=== PATIENT | female | born 1975 | race Two or more races ===

== ENCOUNTER 2016-12-11 09:39 | Emergency (ER) | payer OTHER ==
[2016-12-11 09:45] VITALS: TEMP 98.2; BMI 40.7
--- NOTE | 2016-12-11 09:59 | PDOC ---
History of Present Illness <Stewart Head - Last Filed: 12/11/16 09:59> - History of Present Illness Initial Comments: 12/11/16 10:16 The patient is a 41 year old female, with a significant past medical history of , who presents to the emergency department with dizziness, nausea, and vomiting for 4 days. The patient describes her dizziness as room spinning and denies alleviating factors. She reports a heaviness in her face. The patient states she has nausea associated with the dizziness and reports a few episodes of vomiting. The patient reports being sick about 6 weeks ago and was treated with antibiotics with very little relief of her sinus congestion. She denies chest pain, shortness of breath, headache. She denies fever, chills, diarrhea and constipation. She denies dysuria, frequency, urgency and hematuria. Allergies: NKDA PCP - Dr. Brewer <Lydia James - Last Filed: 12/11/16 15:51> - General Chief Complaint: Lightheaded Stated Complaint: DIZZY, LIGHTHEADED Past History - Past Medical History Asthma: Yes - Surgical History Abdominal Surgery: Yes Appendectomy: Yes - Immunization History Immunization Up to Date: Yes - Psycho/Social/Smoking Cessation Hx Anxiety: No Suicidal Ideation: No Smoking Status: Yes Smoking History: Current every day smoker Have you smoked in the past 12 months: Yes Number of Cigarettes Smoked Daily: 2 Information on smoking cessation initiated: No Hx Alcohol Use: No Drug/Substance Use Hx: No Substance Use Type: None <Stewart Head - Last Filed: 12/11/16 09:59> <Lydia James - Last Filed: 12/11/16 15:51> - Past Medical History Allergies/Adverse Reactions: Allergies Allergy/AdvReac Type Severity Reaction Status Date / Time No Known Allergies Allergy Verified 12/11/16 09:41 Home Medications: Ambulatory Orders Amox-Tr/K Cl [Augmentin - 875Mg Tablet] 1 tab PO BID #20 tablet 12/11/16 Meclizine HCl [Antivert -] 25 mg PO QID PRN #28 tablet 12/11/16 Ondansetron [Zofran Odt -] 4 mg SL TID PRN #21 od.tablet 12/11/16 Review of Systems - Review of Systems Able to Perform ROS?: Yes Comments:: 12/11/16 10:17 CONSTITUTIONAL: Absent: fever, chills, diaphoresis, generalized weakness, malaise, loss of appetite HEENT: (+) nasal congestion, Absent: rhinorrhea, throat pain, throat swelling, difficulty swallowing, mouth swelling, ear pain, eye pain, visual Changes CARDIOVASCULAR: Absent: chest pain, syncope, palpitations, irregular heart rate, lightheadedness , peripheral edema RESPIRATORY: Absent: cough, shortness of breath, dyspnea with exertion, orthopnea, wheezing, stridor, hemoptysis GASTROINTESTINAL: (+) nausea, vomiting. Absent: abdominal pain, abdominal distension, diarrhea, constipation, melena, hematochezia GENITOURINARY: Absent: dysuria, frequency, urgency, hesitancy, hematuria, flank pain, genital pain MUSCULOSKELETAL: Absent: myalgia, arthralgia, joint swelling SKIN: Absent: rash, itching, pallor HEMATOLOGIC/IMMUNOLOGIC: Absent: easy bleeding, easy bruising, lymphadenopathy, frequent infections ENDOCRINE: Absent: unexplained weight gain, unexplained weight loss, heat intolerance, cold intolerance NEUROLOGIC: (+) dizziness, Absent: headache, focal weakness or paresthesias, unsteady gait, seizure, mental status changes, bladder or bowel incontinence PSYCHIATRIC: Absent: anxiety, depression, suicidal or homicidal ideation, hallucinations. <Lydia James - Last Filed: 12/11/16 15:51> *Physical Exam - Vital Signs Last Vital Signs Temp Pulse Resp BP Pulse Ox 98.2 F 85 20 117/65 97 12/11/16 09:43 12/11/16 09:43 12/11/16 09:43 12/11/16 09:43 12/11/16 09:43 <Stewart Head - Last Filed: 12/11/16 09:59> - Vital Signs Last Vital Signs Temp Pulse Resp BP Pulse Ox 98.2 F 85 20 117/65 97 12/11/16 09:43 12/11/16 09:43 12/11/16 09:43 12/11/16 09:43 12/11/16 09:43 - Physical Exam Comments: 12/11/16 10:18 GENERAL: Well developed, well nourished. Awake and alert. No acute distress. HEENT: (+) swollen, red turbinates in bilateral nares. mild sinusitis. No nystagmus. Normocephalic, atraumatic. PERRLA, EOMI. No conjunctival pallor. Sclera are non- icteric. Moist mucous membranes. Oropharynx is clear. NECK: Supple. Full ROM. No JVD. Carotid pulses 2+ and symmetric, without bruits. No thyromegaly. No lymphadenopathy. CARDIOVASCULAR: Regular rate and rhythm. No murmurs, rubs, or gallops. Distal pulses are 2+ and symmetric. PULMONARY: No evidence of respiratory distress. Lungs clear to auscultation bilaterally. No wheezing, rales or rhonchi. ABDOMINAL: Soft. Non-tender. Non-distended. No rebound or guarding. No organomegaly. Normoactive bowel sounds. MUSCULOSKELETAL Normal range of motion at all joints. No bony deformities or tenderness. No CVA tenderness. EXTREMITIES: No cyanosis. No clubbing. No edema. No calf tenderness. SKIN: Warm and dry. Normal capillary refill. No rashes. No jaundice. NEUROLOGICAL: Alert, awake, appropriate. Cranial nerves 2-12 intact. Normoreflexic in the upper and lower extremities. Normal speech. Toes are down-going bilaterally. Gait is normal without ataxia. PSYCHIATRIC: Cooperative. Good eye contact. Appropriate mood and affect. <Lydia James - Last Filed: 12/11/16 15:51> Heart Score/ECG Review - ECG Intrepretation Comment:: 12/11/16 10:20 EKG was read at 10:17 Impression: Normal sinus rhythm Vent. Rate: 78 bpm MN Interval: 154 ms QTc: 440 ms <Lydia James - Last Filed: 12/11/16 15:51> ED Treatment Course - LABORATORY CBC & Chemistry Diagram: 12/11/16 11:00 12/11/16 11:00 <Lydia James - Last Filed: 12/11/16 15:51> *DC/Admit/Observation/Transfer <Stewart Head - Last Filed: 12/11/16 09:59> - Attestations Scribe Attestion: 12/11/16 10:19 Documentation prepared by Lydia James, acting as medical dermatologist for Stewart Head MD, <Lydia James - Last Filed: 12/11/16 15:51> Diagnosis at time of Disposition: Sinusitis - Prescriptions Prescriptions: Meclizine HCl [Antivert -] 25 mg PO QID PRN #28 tablet PRN Reason: Vertigo Amox-Tr/K Cl [Augmentin - 875Mg Tablet] 1 tab PO BID #20 tablet Ondansetron [Zofran Odt -] 4 mg SL TID PRN #21 od.tablet PRN Reason: Nausea - Referrals Referrals: Ernestine Brewer MD [Primary Care Provider] - - Patient Instructions Printed Discharge Instructions: Vertigo, DI for Sinusitis - Post Discharge Activity Work/School Note: Back to Work
[2016-12-11] MEDS ORDERED: MECLIZINE HCL 25 MG TABLET (FP) PO ONE (10:15)
[2016-12-11] MEDS ORDERED: MECLIZINE HCL 25 MG TABLET (FP) ONE (10:59)
[2016-12-11 11:19] LABS: BASOPHIL 1.2 % (0-2.0); EOSINOPHIL 2.4 % (0-4.5); MCH 28.1 pg (25.7-33.7); MCHC 32.8 g/dl (32.0-36.0); MEAN CELL VOLUME 85.5 fl (80-96); MEAN PLT VOLUME 11.1 fl (7.5-11.1); NEUTROPHILS 62.9 % (42.8-82.8); PLATELET COUNT 224 K/MM3 (134-434); RDW 14.4 % (11.6-15.6); WHITE BLOOD COUNT 10.6 K/mm3 (4.0-10.0)
[2016-12-11 11:41] LABS: ALBUMIN 3.6 g/dl (3.4-5.0); ALK PHOS 77 U/L (45-117); ANION GAP 7 (8-16); BILIRUBIN,TOTAL 0.5 mg/dL (0.2-1.0); CO2 29 mmol/L (21-32); CREATININE 0.7 mg/dL (0.55-1.02); GLUCOSE,RANDOM 105 mg/dL (74-106); SGOT/AST 8 U/L (15-37); SGPT/ALT 20 U/L (12-78)
--- NOTE | 2016-12-11 16:13 | EKG ---
Test Reason : Blood Pressure : / mmHG Vent. Rate : 078 BPM Atrial Rate : 078 BPM P-R Int : 154 ms QRS Dur : 084 ms QT Int : 386 ms P-R-T Axes : 075 049 031 degrees QTc Int : 440 ms NORMAL SINUS RHYTHM NORMAL ECG WHEN COMPARED WITH ECG OF 21-JUL-2013 14:43, NO SIGNIFICANT CHANGE WAS FOUND Confirmed by PHUONG LEONE MD ([id number]) on 12/11/2016 4:13:34 PM Referred By: Confirmed By:PHUONG LEONE MD
[2016-12-14 09:46] VITALS: BP 119/62; PULSE 83
== END 2016-12-11 13:13 | disposition home or self-care (01) ==
LOC: JER 09:39
DX: J32.9 Chronic sinusitis, unspecified (principal)
CPT/HCPCS: 36415; 70450-TC; 80053; 84703; 85025; 93005; 93010; 99281-25; 99284-25

== ENCOUNTER 2017-04-08 20:14 | Emergency (ER) | payer OTHER ==
[2017-04-08 20:20] VITALS: TEMP 98.2; BMI 42.7
[2017-04-08 21:32] LABS: URINE APPEARANCE CLEAR; URINE BILIRUBIN NEGATIVE (NEGATIVE); URINE COLOR LTYELLOW; URINE GLUCOSE (UA) NEGATIVE (NEGATIVE); URINE KETONE NEGATIVE (NEGATIVE); URINE LEUK ESTERASE NEGATIVE (NEGATIVE); URINE NITRITE NEGATIVE (NEGATIVE); URINE PROTEIN NEGATIVE (NEGATIVE); URINE UROBILINOGEN NEGATIVE E.U./dl (0.2-1.0)
[2017-04-08 21:35] LABS: URINE BLOOD 3+ (NEGATIVE)
[2017-04-08 21:36] LABS: URINE MUCUS RARE; URINE RBC 2 /hpf (0-3); URINE WBC 1 /hpf (3-5)
[2017-04-08 23:13] LABS: MCH 26.8 pg (25.7-33.7); MCHC 31.7 g/dl (32.0-36.0); MEAN CELL VOLUME 84.5 fl (80-96); MEAN PLT VOLUME 11.1 fl (7.5-11.1); PLATELET COUNT 231 K/MM3 (134-434); RDW 14.5 % (11.6-15.6); WHITE BLOOD COUNT 12.4 K/mm3 (4.0-10.0)
--- NOTE | 2017-04-08 23:48 | PDOC ---
History of Present Illness <Milagros Gallegos - Last Filed: 04/09/17 01:34> - History of Present Illness Initial Comments: 04/08/17 23:26 CHIEF COMPLAINT: vaginal bleeding HISTORY OF PRESENT ILLNESS: 42 yo A3 F with hx of asthma presents to ED with with intermittent vaginal bleeding and lower abdominal pain x 5 days. Patient reports that she did not get her period this past month, but last week she had a little bit of spotting. No recent travel or sick contacts. PAST MEDICAL HISTORY: Denies past medical history FAMILY HISTORY: Denies SOCIAL HISTORY: Denies tobacco, alcohol, illicit drug use. SURGICAL HISTORY: Denies ALLERGIES: No known drug allergies REVIEW OF SYSTEMS General/Constitutional: Denies fever or chills. Denies weakness, weight change. HEENT: Denies change in vision. Denies ear pain or discharge. Denies sore throat. Cardiovascular: Denies chest pain or shortness of breath. Respiratory: Denies cough, wheezing, or hemoptysis. Gastrointestinal: Denies nausea, vomiting, diarrhea or constipation. Denies rectal bleeding. Genitourinary: Denies dysuria, frequency, or change in urination. Musculoskeletal: Denies joint or muscle swelling or pain. Denies neck or back pain. Skin and breasts: Denies rash or easy bruising. Neurologic: Denies headache, vertigo, loss of consciousness, or loss of sensation. Psychiatric: Denies depression or anxiety. Endocrine: Denies increased thirst. Denies abnormal weight change. Hematologic/Lymphatic: Denies anemia, easy bleeding, or history of blood clots. Allergic/Immunologic: Denies hives or skin allergy. Denies latex allergy. PHYSICAL EXAM General Appearance: Well-appearing, appropriately dressed. No apparent distress , no intoxication. HEENT: EOMI, PERRLA, normal ENT inspection, normal voice, TMs normal, pharynx normal. No conjunctival pallor. No photophobia, scleral icterus. Neck: Supple. Trachea midline. No tenderness, rigidity, carotid bruit, stridor , lymphadenopathy, or thyromegaly. Respiratory/Chest: Lungs CTAB. No shortness of breath, chest tenderness, respiratory distress, accessory muscle use. No crackles, rales, rhonchi, stridor , wheezing, dullness Cardiovascular: RRR. S1, S2. No JVD, murmur, bradycardia, tachycardia. Vascular Pulses: Dorsalis-Pedis (R): 2+, Dorsalis-Pedis (L): 2+ Gastrointestinal/Abdominal: Normal bowel sounds. Abdomen soft, non-distended. No tenderness or rebound tenderness. No organomegaly, pulsatile mass, guarding , hernia, hepatomegaly, splenomegaly. Lymphatic: No adenopathy, tenderness. Musculoskeletal/Extremities: Normal inspection. FROM of all extremities, normal capillary refill. Pelvis Stable. No CVA tenderness. No tenderness to extremities, pedal edema, swelling, erythema or deformity. Integumentary: Appropriate color, dry, warm. No cyanosis, erythema, jaundice or rash Neurologic: complaint evaluation officer II-XII intact. Fully oriented, alert. Appropriate mood/affect. Motor strength 5/5. No appreciable EOM palsy, facial droop or sensory deficit. 04/09/17 03:56 <Patricia Hess - Last Filed: 04/09/17 03:59> - General Chief Complaint: Vaginal Bleeding Stated Complaint: VAGINAL BLEEDING/LOWER ABD PAIN/BACK PAIN Time Seen by Provider: 04/08/17 21:46 Past History <Milagros Gallegos - Last Filed: 04/09/17 01:34> - Past Medical History Asthma: Yes - Surgical History Abdominal Surgery: Yes Appendectomy: Yes - Immunization History Immunization Up to Date: Yes - Psycho/Social/Smoking Cessation Hx Anxiety: No Suicidal Ideation: No Smoking Status: Yes Smoking History: Current every day smoker Have you smoked in the past 12 months: Yes Number of Cigarettes Smoked Daily: 4 Information on smoking cessation initiated: No Hx Alcohol Use: No Drug/Substance Use Hx: No Substance Use Type: None <Patricia Hess - Last Filed: 04/09/17 03:59> - Past Medical History Allergies/Adverse Reactions: Allergies Allergy/AdvReac Type Severity Reaction Status Date / Time No Known Allergies Allergy Verified 04/08/17 20:17 Home Medications: Ambulatory Orders Amox-Tr/K Cl [Augmentin - 875Mg Tablet] 1 tab PO BID #20 tablet 12/11/16 Meclizine HCl [Antivert -] 25 mg PO QID PRN #28 tablet 12/11/16 Ondansetron [Zofran Odt -] 4 mg SL TID PRN #21 od.tablet 12/11/16 Ibuprofen 800 mg PO TID PRN #21 tablet 04/09/17 *Physical Exam - Vital Signs Last Vital Signs Temp Pulse Resp BP Pulse Ox 98.2 F 105 H 18 97/61 96 04/08/17 20:17 04/08/17 20:17 04/08/17 20:17 04/08/17 20:17 04/08/17 20:17 <Milagros Gallegos - Last Filed: 04/09/17 01:34> - Vital Signs Last Vital Signs Temp Pulse Resp BP Pulse Ox 98.2 F 105 H 18 97/61 96 04/08/17 20:17 04/08/17 20:17 04/08/17 20:17 04/08/17 20:17 04/08/17 20:17 <Patricia Hess - Last Filed: 04/09/17 03:59> ED Treatment Course - LABORATORY CBC & Chemistry Diagram: 04/08/17 23:05 - ADDITIONAL ORDERS Additional order review: Laboratory Results 04/08/17 04/08/17 04/08/17 23:05 23:05 21:15 Beta HCG, Quant Cancelled Urine Color Ltyellow Urine Appearance Clear Urine pH 6.0 Ur Specific [employer] 1.020 Urine Protein Negative Urine Glucose (UA) Negative Urine Ketones Negative Urine Blood 3+ H Urine Nitrite Negative Urine Bilirubin Negative Urine Urobilinogen Negative Ur Leukocyte Esterase Negative Urine RBC 2 Urine WBC 1 Ur Epithelial Cells Few Urine Mucus Rare Urine HCG, Qual Negative Blood Type O POSITIVE Antibody Screen Negative 04/08/17 23:05 RBC 4.96 MCV 84.5 MCHC 31.7 L RDW 14.5 MPV 11.1 <Milagros Gallegos - Last Filed: 04/09/17 01:34> - LABORATORY CBC & Chemistry Diagram: 04/08/17 23:05 - ADDITIONAL ORDERS Additional order review: Laboratory Results 04/08/17 21:15 Urine Color Ltyellow Urine Appearance Clear Urine pH 6.0 Ur Specific [employer] 1.020 Urine Protein Negative Urine Glucose (UA) Negative Urine Ketones Negative Urine Blood 3+ H Urine Nitrite Negative Urine Bilirubin Negative Urine Urobilinogen Negative Ur Leukocyte Esterase Negative Urine RBC 2 Urine WBC 1 Ur Epithelial Cells Few Urine Mucus Rare Urine HCG, Qual Negative 04/08/17 23:05 RBC 4.96 MCV 84.5 MCHC 31.7 L RDW 14.5 MPV 11.1 - RADIOLOGY Radiology Studies Ordered: Category Date Time Status TRANSVAGINAL ULTRASOUND US [US] Stat Ultrasound 04/08/17 22:21 Ordered <JimenaPatricia - Last Filed: 04/09/17 03:59> Medical Decision Making - Medical Decision Making 04/09/17 03:56 42 yo A3 F with hx of asthma presents to ED with with intermittent vaginal bleeding and lower abdominal pain x 5 days. -CBC,T&S, urine hcg -TV US Ovaries not seen either transabdominally or transvaginally; ovarian torsion cannot be excluded. No adnexal masses. No free fluid. Uterus measures 12.3 x 5.8 x 6.5 cm. Endometrial stripe complex 10 mm thick. Unremarkable visualized portion of bladder. THIS DOCUMENT HAS BEEN ELECTRONICALLY SIGNED Yanet Coleman M.D. 04/09/17 03:58 Discussed case with attending ER MD Gallegos, will discharge to home with close f/ u with OBGYN. <Patricia Hess - Last Filed: 04/09/17 03:59> *DC/Admit/Observation/Transfer <Milagros Gallegos - Last Filed: 04/09/17 01:34> - Discharge Dispostion Admit: No <Patricia Hess - Last Filed: 04/09/17 03:59> Diagnosis at time of Disposition: Vaginal bleeding, abnormal - Discharge Dispostion Disposition: HOME Condition at time of disposition: Stable - Prescriptions Prescriptions: Ibuprofen 800 mg PO TID PRN #21 tablet PRN Reason: Pain - Referrals Referrals: Perla Toney MD [Primary Care Provider] - - Patient Instructions Printed Discharge Instructions: DI for Dysmenorrhea Additional Instructions: Please take Motrin for your pain and follow up with OBGYN this week. If you experience severe vaginal bleeding (more than one soaked pad an hour), severe pain to one side of your pelvis or abdomen, nausea, vomiting, dizziness, lightheadedness, headache, or any new or worsening symptoms, please return to the ER.
[2017-04-09] MEDS ORDERED: KETOROLAC TROMETHAMINE 60 MG/2 ML VIAL IM ONE (01:15)
[2017-04-09] MEDS ORDERED: KETOROLAC TROMETHAMINE 60 MG/2 ML VIAL ONE (01:27)
[2017-04-09 01:46] VITALS: BP 98/67; PULSE 87
== END 2017-04-09 01:46 | disposition home or self-care (01) ==
LOC: JER 20:14
PROC: 3E0233Z Introduction of Anti-inflammatory into Muscle, Percutaneous Approach (ICD-10-PCS; principal; 2017-04-08)
DX: N93.8 Other specified abnormal uterine and vaginal bleeding (principal)
CPT/HCPCS: 36415; 76830-TC; 81003; 81015; 84703; 85027; 86850; 86900; 86901; 96372; 99282-25

== ENCOUNTER 2017-06-15 11:08 | Emergency (ER) | payer SELFPAY ==
[2017-06-15 11:26] VITALS: BP 114/61; PULSE 90; TEMP 98.3; BMI 42.5
--- NOTE | 2017-06-15 11:58 | PDOC ---
History of Present Illness - General Chief Complaint: [facility] [place] St[place] Complaint: POSS PRG Time Seen by Provider: 06/15/17 11:27 History Source: Patient Exam Limitations: No Limitations - History of Present Illness Initial Comments: 06/15/17 11:50 Patient is a 42-year-old female, history of asthma, patient states that she was seen in the emergency department at [facility] on 06/07/17/ because she missed her period for 45 days. Was diagnosed with UTI. Started on Bactrim. Urine was negative. Still with lower abdominal pain, back pain. Concerned that urine test was wrong. Symptoms of UTI are not resolving. Denies hematurina, no vaginal bleeding or discharge, no lesions. Partner also was noted to have sex with another woman is concerned tat may be a cause of her symptoms. Past Medical History: asthma. Allergies: No known allergies Medications: See list Family History: Non-contributory Social History: + smoker, alcohol use, or IVDU Review of Systems GENERAL/CONSTITUTIONAL: No fever or chills. No weakness. No weight change. HEAD, EYES, EARS, NOSE AND THROAT: No change in vision. No ear pain or discharge. No sore throat. CARDIOVASCULAR: No chest pain or shortness of breath. RESPIRATORY: No cough, wheezing, or hemoptysis. GASTROINTESTINAL: No nausea, vomiting, diarrhea or constipation. No rectal bleeding. GENITOURINARY: dysuria, no frequency, no hematuria MUSCULOSKELETAL: No joint or muscle swelling or pain. Lower back pain. SKIN: No rash or easy bruising. Physical Exam: GENERAL: The patient is awake, alert, and fully oriented, in no acute distress. LUNGS: Breath sounds equal, clear to auscultation bilaterally. No wheezes, and no crackles. HEART: Regular rate and rhythm, normal S1 and S2 without murmur, rub or gallop. ABDOMEN: Soft, nontender, normoactive bowel sounds. No guarding, no rebound. No masses. No bruising or abrasions MUSCULOSKELETAL: Normal range of motion, no edema. No clubbing or cyanosis. No cords, erythema, or tenderness. No CVA Tenderness with fist palpation. NEUROLOGICAL: Cranial nerves II through XII grossly intact. Normal speech, normal gait. SKIN: Warm, Dry, normal turgor, no rashes or lesions noted. Past History - Past Medical History Allergies/Adverse Reactions: Allergies Allergy/AdvReac Type Severity Reaction Status Date / Time No Known Allergies Allergy Verified 06/15/17 11:23 Home Medications: Ambulatory Orders Meclizine HCl [Antivert -] 25 mg PO QID PRN #28 tablet 12/11/16 Cefuroxime Axetil [Cefuroxime] 500 mg PO BID #28 tablet 06/15/17 Asthma: Yes - Surgical History Abdominal Surgery: Yes Appendectomy: Yes - Immunization History Immunization Up to Date: Yes - Psycho/Social/Smoking Cessation Hx Anxiety: No Suicidal Ideation: No Smoking Status: Yes Smoking History: Current every day smoker Have you smoked in the past 12 months: Yes Number of Cigarettes Smoked Daily: 15 Information on smoking cessation initiated: No Hx Alcohol Use: No Drug/Substance Use Hx: No Substance Use Type: None *Physical Exam - Vital Signs Last Vital Signs Temp Pulse Resp BP Pulse Ox 98.3 F 90 17 114/61 96 06/15/17 11:23 06/15/17 11:23 06/15/17 11:23 06/15/17 11:23 06/15/17 11:23 Medical Decision Making - Medical Decision Making 06/15/17 11:58 A/P: Patient here for evaluation of amennorhea, urinary tract infection, and STD evaluation Plan: Urinalysis urine culture Chlam/Nishant Beta HCG. 06/15/17 13:14 Laboratory Results - last 24 hr 06/15/17 06/15/17 12:00 12:00 Beta HCG, Quant < 1.0 Urine Color Dkyellow Urine Appearance Turbid Urine pH 5.0 Urine Protein 2+ H Urine Glucose (UA) Negative Urine Ketones Negative Urine Blood 2+ H Urine Nitrite Negative Urine Bilirubin Negative Urine Urobilinogen Negative Ur Leukocyte Esterase 3+ H Urine RBC 14 Urine WBC 1085 Ur Epithelial Cells Many Urine Bacteria Rare Urine Mucus Rare She has been noncompliant with medication, has not been taking her daily proper dose. Was prescribed on 06/07 and still has half the prescription left. We'll DC patient on cefuroxime, made aware of her status is negative. GC and chlamydia still pending given phone number to follow-up. I discussed the physical exam findings, ancillary test results and final diagnoses with the patient. I answered all of the patient's questions. The patient was satisfied with the care received and felt comfortable with the discharge plan and treatment plan. The patient will call to arrange follow-up and will return to the Emergency Department with any new, persistent or worsening symptoms. 06/15/17 13:15 *DC/Admit/Observation/Transfer Diagnosis at time of Disposition: Urinary tract infection Qualifiers: Urinary tract infection type: site unspecified Hematuria presence: without hematuria Qualified Code(s): N39.0 - Urinary tract infection, site not specified - Discharge Dispostion Disposition: HOME Condition at time of disposition: Good Admit: No - Prescriptions Prescriptions: Cefuroxime Axetil [Cefuroxime] 500 mg PO BID #28 tablet - Referrals Referrals: Taj Harrison MD [Staff Physician] - - Patient Instructions Printed Discharge Instructions: DI for Urinary Tract Infection (UTI) Additional Instructions: Your urine is negative, you have a significant urinary tract infection. Please take antibiotics as ordered until completed. If any fever, increased back pain, or any other concerns return to ER please discontinue antibiotics that were previously ordered.
[2017-06-15 12:27] LABS: URINE APPEARANCE TURBID; URINE BILIRUBIN NEGATIVE (NEGATIVE); URINE BLOOD 2+ (NEGATIVE); URINE COLOR DKYELLOW; URINE GLUCOSE (UA) NEGATIVE (NEGATIVE); URINE KETONE NEGATIVE (NEGATIVE); URINE NITRITE NEGATIVE (NEGATIVE); URINE UROBILINOGEN NEGATIVE mg/dL (0.2-1.0)
[2017-06-15 12:28] LABS: URINE LEUK ESTERASE 3+ (NEGATIVE); URINE PROTEIN 2+ (NEGATIVE)
[2017-06-15 12:59] LABS: URINE BACTERIA RARE /hpf (NONE SEEN); URINE MUCUS RARE; URINE RBC 14 /hpf (0-3); URINE WBC 1085 /hpf (3-5)
[2017-06-15 14:59] LABS: HIV 1 & 2 AB NEGATIVE; HIV 1 AGp24 NEGATIVE
== END 2017-06-15 13:25 | disposition home or self-care (01) ==
LOC: JERFT 11:08
DX: N39.0 Urinary tract infection, site not specified (principal); T49.0X6A Underdosing of local antifungal, anti-infective and anti-inflammatory drugs, initial encounter; Y92.038 Other place in apartment as the place of occurrence of the external cause
CPT/HCPCS: 36415; 81003; 81015; 84702; 87086; 87389; 87491; 87591; 99281-25

== ENCOUNTER 2017-11-02 09:16 | Emergency (ER) | payer OTHER ==
[2017-11-02 09:25] VITALS: TEMP 97.8; BMI 42.5
[2017-11-02] MEDS ORDERED: KETOROLAC TROMETHAMINE 30 MG/1 ML VIAL IVPUSH ONE (09:39)
--- NOTE | 2017-11-02 09:39 | PDOC ---
History of Present Illness - General Chief Complaint: Vaginal Sxs Stated Complaint: PAIN, IRREGULAR VAGINAL DISCHARGE Time Seen by Provider: 11/02/17 09:28 History Source: Patient - History of Present Illness Timing/Duration: reports: other (last week) Abdominal Pain Onset Location: reports: suprapubic Past History - Past Medical History Allergies/Adverse Reactions: Allergies Allergy/AdvReac Type Severity Reaction Status Date / Time No Known Allergies Allergy Verified 11/02/17 09:19 Home Medications: Ambulatory Orders Doxycycline Hyclate 100 mg PO BID #27 capsule 11/02/17 Ibuprofen [Motrin -] 600 mg PO QID #28 tablet 11/02/17 Metronidazole [Flagyl -] 500 mg PO DAILY #28 tablet 11/02/17 Asthma: Yes COPD: No - Surgical History Abdominal Surgery: Yes Appendectomy: Yes - Immunization History Immunization Up to Date: Yes - Suicide/Smoking/Psychosocial Hx Smoking Status: Yes Smoking History: Current every day smoker Have you smoked in the past 12 months: Yes Number of Cigarettes Smoked Daily: 15 Information on smoking cessation initiated: Yes 'Breaking Loose' booklet given: 11/02/17 Hx Alcohol Use: No Drug/Substance Use Hx: No Substance Use Type: None Review of Systems - Review of Systems Constitutional: No: Chills, Fever ABD/GI: Yes: Abdominal cramping. No: Nausea, Vomiting : Yes: Discharge. No: Dysuria, Flank Pain, Hematuria *Physical Exam - Vital Signs Last Vital Signs Temp Pulse Resp BP Pulse Ox 97.8 F 83 18 144/78 100 11/02/17 09:20 11/02/17 09:20 11/02/17 09:20 11/02/17 09:20 11/02/17 09:20 - Physical Exam General Appearance: Yes: Appropriately Dressed. No: Apparent Distress HEENT: positive: Normal Voice Neck: positive: Supple Respiratory/Chest: negative: Respiratory Distress Female Pelvic Exam: positive: vaginal bleeding (copious amount of foul smelling light green discharge w/ ? R adnexal ttp and CMT) Gastrointestinal/Abdominal: positive: Tender (to mid lower abd), Soft. negative : Mass Musculoskeletal: negative: CVA Tenderness Integumentary: positive: Dry, Warm Neurologic: positive: Fully Oriented, Alert, Normal Mood/Affect ED Treatment Course - LABORATORY CBC & Chemistry Diagram: 11/02/17 09:39 11/02/17 09:39 - RADIOLOGY Radiology Studies Ordered: Category Date Time Status PELVIS(OTHER) US [US] Stat Ultrasound 11/02/17 09:35 Ordered TRANSVAGINAL ULTRASOUND US [US] Stat Ultrasound 11/02/17 09:35 Ordered Medical Decision Making - Medical Decision Making 11/02/17 09:36 42-year-old female, denies any past medical history, here with lower abdominal pain with foul smelling discharge. Patient states she first developed pelvic pain last week and was seen at [facility] and found to have elevated WBC and was sent for CAT scan which showed " a big cyst on my uterus" and was told to follow-up with her [employer]. Pt states she has an appointment scheduled next week, but returns today because of a foul smelling green discharge that started 5 days ago, copious in amount and requiring multiple pads per day. States prior to discharge, she developed some vaginal bleeding that was not her menses that lasted for a day or 2 and has since resolved. Denies nausea, vomiting, fever or chills. No history of STDs or PID. No history of fibroids. See exam Concern for PID, r/o TOA -abx -labs -US 11/02/17 10:06 11/02/17 11:48 US read as "3x2x1 cm structure within cervical canal which could represent abscess vs cervicitis e/ edematous mucosa. Also seen is acute/subacute clotted blood, probably less likely neoplastic disease". Wbc 11, rest of labs unremarkable. Case discussed with Dr. Fernández of [employer] who states findings unlikely represent abscess, agrees with outpatient treatment for PID and states patient should follow-up with her already scheduled [employer] appointment this coming week and will need a pap smear. Pt informed of results and given copy of US and lab results to take to her [employer] this week. Strict return precautions given 11/02/17 12:03 *DC/Admit/Observation/Transfer Diagnosis at time of Disposition: PID (acute pelvic inflammatory disease) - Discharge Dispostion Disposition: HOME Condition at time of disposition: Improved - Prescriptions Prescriptions: Doxycycline Hyclate 100 mg PO BID #27 capsule Ibuprofen [Motrin -] 600 mg PO QID #28 tablet Metronidazole [Flagyl -] 500 mg PO DAILY #28 tablet - Referrals Referrals: Chuy Estrella MD [Primary Care Provider] - - Patient Instructions Printed Discharge Instructions: Pelvic Inflammatory Disease Additional Instructions: Based on your exam, the concern is for pelvic inflammatory disease, and you were treated with antibiotics. Please continue to take medications as directed Do not drink alcohol while on flagyl as you can develop a bad reaction Please call for test results in 2-3 days at [phone]. If symptoms worsen and she developed nausea, vomiting, fever or chills, return to ER immediately, otherwise please follow-up with your [employer] this coming week as already scheduled. Please take labs results and US report with you to your [employer] appt - Post Discharge Activity
[2017-11-02] MEDS ORDERED: KETOROLAC TROMETHAMINE 30 MG/1 ML VIAL ONE (10:02)
[2017-11-02] MEDS ORDERED: AZITHROMYCIN 250 MG TABLET PO ONE (10:04)
[2017-11-02] MEDS ORDERED: DOXYCYCLINE HYCLATE 100 MG CAPSULE PO ONE ×2 (10:05→10:12)
[2017-11-02] MEDS ORDERED: metroNIDAZOLE 500 MG TABLET PO ONE (10:05)
[2017-11-02 10:07] LABS: BASOPHIL 1.2 % (0-2.0); EOSINOPHIL 3.8 % (0-4.5); MCH 27.2 pg (25.7-33.7); MEAN CELL VOLUME 82.6 fl (80-96); MEAN PLT VOLUME 10.8 fl (7.5-11.1); NEUTROPHILS 59.2 % (42.8-82.8); PLATELET COUNT 265 K/MM3 (134-434); RDW 14.1 % (11.6-15.6); WHITE BLOOD COUNT 11.7 K/mm3 (4.0-10.0)
[2017-11-02 10:09] LABS: URINE APPEARANCE CLOUDY; URINE BILIRUBIN NEGATIVE (NEGATIVE); URINE BLOOD 1+ (NEGATIVE); URINE COLOR YELLOW; URINE GLUCOSE (UA) NEGATIVE (NEGATIVE); URINE KETONE NEGATIVE (NEGATIVE); URINE NITRITE NEGATIVE (NEGATIVE); URINE PROTEIN NEGATIVE (NEGATIVE); URINE UROBILINOGEN NEGATIVE mg/dL (0.2-1.0)
[2017-11-02] MEDS ORDERED: metroNIDAZOLE 250 MG TABLET ONE (10:11)
[2017-11-02] MEDS ORDERED: AZITHROMYCIN 250 MG TABLET ONE (10:11)
[2017-11-02] MEDS ORDERED: cefTRIAXone SODIUM 1 GM VIAL ONE (10:12)
[2017-11-02] MEDS ORDERED: LIDOCAINE HCL 1%, 10 MG/ML (20ML VIAL) ONE (10:13)
[2017-11-02 10:14] LABS: URINE LEUK ESTERASE 3+ (NEGATIVE)
[2017-11-02 10:15] LABS: URINE HYALINE CAST 1 /lpf; URINE MUCUS RARE; URINE RBC 2 /hpf (0-3); URINE WBC 12 /hpf (3-5)
[2017-11-02 10:31] LABS: ALBUMIN 3.7 g/dl (3.4-5.0); ALK PHOS 89 U/L (45-117); ANION GAP 8 (8-16); BILIRUBIN,TOTAL 0.4 mg/dL (0.2-1.0); CALCIUM 8.7 mg/dL (8.5-10.1); CO2 27 mmol/L (21-32); CREATININE 0.8 mg/dL (0.55-1.02); GLUCOSE,RANDOM 112 mg/dL (74-106); SGOT/AST 12 U/L (15-37); SGPT/ALT 28 U/L (12-78); TOT PROT 7.4 g/dl (6.4-8.2)
[2017-11-02 12:25] VITALS: BP 111/60; PULSE 87
[2017-11-02 14:35] LABS: URINE LEUK ESTERASE 3+ (NEGATIVE)
== END 2017-11-02 12:27 | disposition home or self-care (01) ==
LOC: JER 09:16
PROC: 3E02329 Introduction of Other Anti-infective into Muscle, Percutaneous Approach (ICD-10-PCS; principal; 2017-11-02)
PROC: 3E0333Z Introduction of Anti-inflammatory into Peripheral Vein, Percutaneous Approach (ICD-10-PCS; 2017-11-02)
DX: N73.0 Acute parametritis and pelvic cellulitis (principal)
CPT/HCPCS: 36415; 76830-TC; 76856-TC; 80053; 81003; 81015; 84703; 85025; 87491; 87591; 96372; 96374; 99283-25

== ENCOUNTER 2018-03-15 07:28 | Emergency (ER) | payer OTHER ==
[2018-03-15 07:47] VITALS: TEMP 97.8; BMI 40.7
--- NOTE | 2018-03-15 08:19 | PDOC ---
History of Present Illness - General Chief Complaint: Respiratory Stated Complaint: WHEEZING,COUGH Time Seen by Provider: 03/15/18 07:47 History Source: Patient Exam Limitations: No Limitations - History of Present Illness Initial Comments: 03/15/18 08:07 43F with pmh of mild asthma presents to the ED for cough since last night and left swollen foot with cramping calf pain since waking up this morning. She denies hemoptysis, any recent surgeries or travel, not on any control. No known active cancer. Was never hospitalized or intubated for her asthma. Past History - Past Medical History Allergies/Adverse Reactions: Allergies Allergy/AdvReac Type Severity Reaction Status Date / Time No Known Allergies Allergy Verified 03/15/18 07:42 Home Medications: Ambulatory Orders Albuterol Sulfate Inhaler - [Ventolin HFA Inhaler -] 1 - 2 inh PO Q4H #1 inhaler 03/15/18 Cephalexin [Keflex] 500 mg PO BID #20 capsule 03/15/18 Asthma: Yes COPD: Yes - Surgical History Abdominal Surgery: Yes Appendectomy: Yes - Immunization History Immunization Up to Date: Yes - Suicide/Smoking/Psychosocial Hx Smoking Status: Yes Smoking History: Current every day smoker Have you smoked in the past 12 months: Yes Number of Cigarettes Smoked Daily: 15 Information on smoking cessation initiated: No 'Breaking Loose' booklet given: 11/02/17 Hx Alcohol Use: No Drug/Substance Use Hx: No Substance Use Type: None Review of Systems - Review of Systems Able to Perform ROS?: Yes Is the patient limited [place] Islander proficient: No Constitutional: No: Symptoms Reported HEENTM: No: Symptoms Reported Respiratory: No: Symptoms reported Cardiac (ROS): No: Symptoms Reported ABD/GI: No: Symptoms Reported : No: Symptoms Reported Musculoskeletal: Yes: See HPI Integumentary: Yes: Symptoms Reported Neurological: Yes: Symptoms reported *Physical Exam - Vital Signs Last Vital Signs Temp Pulse Resp BP Pulse Ox 97.8 F 89 18 125/68 97 03/15/18 07:39 03/15/18 07:39 03/15/18 07:39 03/15/18 07:39 03/15/18 07:39 - Physical Exam General Appearance: Yes: Nourished, Appropriately Dressed. No: Apparent Distress HEENT: positive: EOMI, JOSE, Normal ENT Inspection Neck: negative: Tender Respiratory/Chest: positive: Lungs Clear, Normal Breath Sounds. negative: Chest Tender, Respiratory Distress Cardiovascular: positive: Regular Rhythm, Regular Rate, S1, S2 Gastrointestinal/Abdominal: positive: Normal Bowel Sounds, Flat, Soft. negative : Tender Musculoskeletal: positive: Normal Inspection Extremity: positive: Normal Capillary Refill, Normal Inspection, Normal Range of Motion, Calf Tenderness ED Treatment Course - LABORATORY CBC & Chemistry Diagram: 03/15/18 08:35 03/15/18 08:35 - RADIOLOGY Radiology Studies Ordered: Category Date Time Status CHEST PA & LAT [RAD] Stat Radiology 03/15/18 08:03 Ordered Medical Decision Making - Medical Decision Making 03/15/18 08:24 43F with asthma presenting with cough and leg pain. Patient is low risk factor for DVT and PE. Will get basic labs d-dimer and CXR 03/15/18 10:36 Urine positive for UTI, will treat with Keflex. Mild wheezing treated with treatment of duoneb. ok to dc *DC/Admit/Observation/Transfer Diagnosis at time of Disposition: Urinary tract infection, Mild asthma - Discharge Dispostion Disposition: HOME Condition at time of disposition: Improved Admit: No - Prescriptions Prescriptions: Albuterol Sulfate Inhaler - [Ventolin HFA Inhaler -] 1 - 2 inh PO Q4H #1 inhaler Cephalexin [Keflex] 500 mg PO BID #20 capsule - Referrals - Patient Instructions Printed Discharge Instructions: DI for Urinary Tract Infection (UTI) Additional Instructions: supervisor cell efficiency prescription at pharmacy. Come back to the emergency department for any new, worsening or concerning symptom. - Post Discharge Activity
[2018-03-15 08:42] LABS: BASO % 0.6 % (0-2.0); EOS % 3.8 % (0-4.5); HEMOGLOBIN 12.5 GM/dL (10.7-15.3); LYMPH % 21.1 % (8-40); MCH 27.3 pg (25.7-33.7); MCHC 32.8 g/dl (32.0-36.0); MEAN CELL VOLUME 83.3 fl (80-96); MEAN PLT VOLUME 10.6 fl (7.5-11.1); MONO % 8.6 % (3.8-10.2); NEUT % 65.9 % (42.8-82.8); PLATELET COUNT 246 K/MM3 (134-434); RBC 4.56 M/mm3 (3.60-5.2); WHITE BLOOD COUNT 12.9 K/mm3 (4.0-10.0)
[2018-03-15 08:45] LABS: HCG,QUALITATIVE URINE NEGATIVE
[2018-03-15 08:46] LABS: URINE APPEARANCE CLOUDY; URINE BILIRUBIN NEGATIVE (<2.0 mg/dL); URINE BLOOD 2+ (NEGATIVE); URINE COLOR DKYELLOW; URINE GLUCOSE (UA) NEGATIVE (NEGATIVE); URINE KETONE NEGATIVE (NEGATIVE); URINE NITRITE NEGATIVE (NEGATIVE); URINE UROBILINOGEN NEGATIVE mg/dL (0.2-1.0)
[2018-03-15 08:48] LABS: URINE LEUK ESTERASE 3+ (NEGATIVE); URINE PROTEIN 1+ (NEGATIVE)
[2018-03-15 08:52] LABS: EPI CELLS MANY /HPF (FEW); URINE MUCUS RARE
[2018-03-15 09:16] LABS: ALBUMIN 3.8 g/dl (3.4-5.0); ANION GAP 11 (8-16); BILIRUBIN,TOTAL 0.5 mg/dL (0.2-1.0); BLOOD UREA NITROGEN 10 mg/dL (7-18); CALCIUM 9.4 mg/dL (8.5-10.1); CHLORIDE 103 mmol/L (98-107); CO2 25 mmol/L (21-32); CREATININE 0.7 mg/dL (0.55-1.02); GLUCOSE,RANDOM 113 mg/dL (74-106); SGPT/ALT 38 U/L (12-78); SODIUM 139 mmol/L (136-145); TOT PROT 7.6 g/dl (6.4-8.2)
[2018-03-15 09:17] LABS: ALK PHOS 86 U/L (45-117)
[2018-03-15 09:20] LABS: POTASSIUM 4.3 mmol/L (3.5-5.1)
[2018-03-15 09:21] LABS: SGOT/AST 35 U/L (15-37)
[2018-03-15] MEDS ORDERED: CEPHALEXIN MONOHYDRATE 500 MG CAPSULE (UD) PO ONE (09:45)
[2018-03-15] MEDS ORDERED: ALBUTEROL SO4 0.083% IH SOL 2.5 MG/3 ML VIAL.NEB. NEB ONE ×2 (09:49→10:06)
--- NOTE | 2018-03-15 09:52 | EKG ---
Test Reason : Blood Pressure : / mmHG Vent. Rate : 080 BPM Atrial Rate : 080 BPM P-R Int : 152 ms QRS Dur : 088 ms QT Int : 378 ms P-R-T Axes : 062 050 040 degrees QTc Int : 435 ms NORMAL SINUS RHYTHM NORMAL ECG WHEN COMPARED WITH ECG OF 11-DEC-2016 10:17, NO SIGNIFICANT CHANGE WAS FOUND Confirmed by SOLIS BUGROS MD ([id number]) on 03/15/2018 9:51:34 AM Referred By: Confirmed By:SOLIS BURGOS MD
--- NOTE | 2018-03-15 09:55 | PDOC ---
Attending Attestation - Resident Resident Name: Perry Francis - ED Attending Attestation I have performed the following: I have examined & evaluated the patient, The case was reviewed & discussed with the resident, I agree w/resident's findings & plan, Exceptions are as noted - HPI HPI: 03/15/18 09:53 "The patient is a 40 year old female with a significant PMH of asthma who presents to the emergency department with a 2 days of cough and 1 day of left calf cramps. The patient reports she was coughing persistently last night at work and felt like her asthma was acting up. She used her inhaler but ran out this morning. The patient denies fevers or chills. She denies sick contacts or recent travel. Denies any recent immobilization. Not on OCPs. Denies h/o DVT. Denies CP/SOB. Allergies: NKA PCP: None reported. " - Physicial Exam PE: 03/15/18 09:54 "GENERAL: Awake, alert, and fully oriented, in no acute distress. HEAD: No signs of trauma EYES: PERRLA, EOMI, sclera anicteric, conjunctiva clear ENT: Auricles normal inspection, hearing grossly normal, nares patent, oropharynx clear without exudates. Moist mucosa NECK: Nontender, no stepoffs, Normal ROM, supple, no lymphadenopathy, JVD, or masses LUNGS: Mild expiratory wheezes, L>R, no crackles or rhonchi HEART: Regular rate and rhythm, normal S1 and S2, no murmurs, rubs or gallops ABDOMEN: Soft, nontender, normoactive bowel sounds. No guarding, no rebound. No masses EXTREMITIES: Normal range of motion, no edema. No clubbing or cyanosis. No cords, erythema, or tenderness NEUROLOGICAL: Cranial nerves II through XII intact. 5/5 strength and sensation in all extremities, Normal speech, normal gait, normal cerebellar function SKIN: Warm, Dry, normal turgor, no rashes or lesions noted. " - Medical Decision Making 03/15/18 09:54 43 yo F with cough and wheezing. Likely mild asthma exacerbation. Pt also complaining of L calf cramping but no clinical signs of DVT. - Labs, ddimer - CXR - Nebs - Refill albuterol pump 03/15/18 09:55 CXR clear,Dimer negative UA with UTI, labs otherwise normal Pt reassessed - Now feels significantly better. Repeat lung exam completely clear. Pt is well appearing, with normal vitals. Clinically stable for DC at this time. I discussed the physical exam findings, ancillary test results and final diagnoses with the patient. I answered all of the patient's questions. The patient was satisfied with the care received and felt comfortable with the discharge plan and treatment plan. The patient agrees to follow up with the primary care physician within 24-72 hours. Heart Score/ECG Review - ECG Impressions Comment:: 03/15/18 09:56 NSR, no FLORINA/STDs, no TWIs, axis wnl, intervals wnl, rate 80
[2018-03-15] MEDS ORDERED: CEPHALEXIN MONOHYDRATE 500 MG CAPSULE (UD) ONE (10:06)
[2018-03-15 10:55] VITALS: BP 125/64; PULSE 81
== END 2018-03-15 10:55 | disposition home or self-care (01) ==
LOC: JER 07:28
PROC: 3E0F7GC Introduction of Other Therapeutic Substance into Respiratory Tract, Via Natural or Artificial Opening (ICD-10-PCS; principal; 2018-03-15)
DX: N39.0 Urinary tract infection, site not specified (principal); J45.901 Unspecified asthma with (acute) exacerbation
CPT/HCPCS: 36415; 71046-TC-FY; 80053; 81003; 81015; 84703; 85025; 85379; 93005; 93010; 99282-25

== ENCOUNTER 2018-05-20 16:21 | Inpatient (IN) | payer BC, OTHER ==
[2018-05-20 16:35] VITALS: BMI 44.4
[2018-05-20] MEDS ORDERED: SODIUM CHLORIDE 1,000 ML IV STA ×2 (16:37→18:32)
--- NOTE | 2018-05-20 16:49 | PDOC ---
Rapid Medical Evaluation Time Seen by Provider: 05/20/18 16:30 Medical Evaluation: Allergies Allergy/AdvReac Type Severity Reaction Status Date / Time No Known Allergies Allergy Verified 03/15/18 07:42 05/20/18 16:31 Pt presents with RLQ pain starting yesterday morning. States that the pain is radiating to the L side of the abdomen. Reports taking 6 500mg tabs of midol. Reports vomiting and diarrhea. Also reports vaginal bleeding. PSHX of appendectomy Exam: Pain to the R lower quadrant/R adenexal pain. Abdomen SNT with no rebound or guarding Orders: Labs, IV insert with fluids, Transvaginal US Pt. to proceed to ED for further evaluation
--- NOTE | 2018-05-20 17:12 | PDOC ---
History of Present Illness - General Chief Complaint: Pain, Acute Stated Complaint: PAIN Time Seen by Provider: 05/20/18 16:30 History Source: Patient Exam Limitations: No Limitations - History of Present Illness Travel History: No Initial Comments: 05/20/18 18:07 43-year-old female with history of renal colic and appendectomy presents to the ED with complaints of lower abdominal cramping radiating to her flank region associated nausea vomiting 2 and one episode of brown watery diarrhea. Patient also states has vaginal bleeding despite having her menses on April 29. Patient also states urinary frequency and urgency without burning, fever or chills. Timing/Duration: reports: constant Quality: reports: moderate, cramping, sharpness Abdominal Pain Onset Location: reports: suprapubic, flank Pain Radiation: reports: back Aggravating Factors: improves with: None Alleviating Factors: improves with: None Past History - Travel Traveled outside of the country in the last 30 days: No - Past Medical History Allergies/Adverse Reactions: Allergies Allergy/AdvReac Type Severity Reaction Status Date / Time No Known Allergies Allergy Verified 05/20/18 16:31 Home Medications: Ambulatory Orders Albuterol Sulfate Inhaler - [Ventolin HFA Inhaler -] 1 puff IH Q4H PRN 05/21/18 Ipratropium 0.02% Nebulizer [Atrovent] 1 neb NEB Q6H PRN 05/21/18 Asthma: Yes COPD: Yes Kidney Stones: Yes - Surgical History Abdominal Surgery: Yes Appendectomy: Yes - Immunization History Immunization Up to Date: Yes - Suicide/Smoking/Psychosocial Hx Smoking Status: Yes Smoking History: Current every day smoker Have you smoked in the past 12 months: Yes Number of Cigarettes Smoked Daily: 15 Information on smoking cessation initiated: No 'Breaking Loose' booklet given: 11/02/17 Hx Alcohol Use: No Drug/Substance Use Hx: No Substance Use Type: None Patient Lives Alone: No Lives with/in: spouse/SO Review of Systems - Review of Systems Able to Perform ROS?: No Constitutional: No: Symptoms Reported HEENTM: No: Symptoms Reported Respiratory: No: Symptoms reported Cardiac (ROS): No: Symptoms Reported ABD/GI: Yes: Diarrhea, Nausea, Vomiting, Abdominal cramping : Yes: Frequency, Flank Pain, Urgency Musculoskeletal: Yes: Back Pain Integumentary: No: Symptoms Reported Neurological: No: Symptoms reported Endocrine: No: Symptoms Reported Hematologic/Lymphatic: No: Symptoms Reported *Physical Exam - Vital Signs Last Vital Signs Temp Pulse Resp BP Pulse Ox 98.3 F 96 H 17 112/78 99 05/20/18 16:31 05/20/18 16:31 05/20/18 16:31 05/20/18 16:31 05/20/18 16:31 - Physical Exam General Appearance: Yes: Nourished, Appropriately Dressed. No: Apparent Distress HEENT: negative: Pale Conjunctivae Neck: positive: Normal Thyroid, Supple Respiratory/Chest: positive: Lungs Clear, Normal Breath Sounds. negative: Respiratory Distress, Accessory Muscle Use Cardiovascular: positive: Regular Rhythm, Regular Rate. negative: Murmur Female Pelvic Exam: positive: vaginal bleeding (scant bright red no clots) Gastrointestinal/Abdominal: positive: Soft, Tenderness (mid suprapubic and bilateral flank) Musculoskeletal: positive: CVA Tenderness (R) (mild) Extremity: positive: Normal Capillary Refill. negative: Pedal Edema Integumentary: positive: Normal Color, Warm, Moist Neurologic: positive: Motor Strength 5/5 (ambulatory) ED Treatment Course - LABORATORY CBC & Chemistry Diagram: 05/22/18 07:00 05/21/18 06:30 Medical Decision Making - Medical Decision Making 05/20/18 18:00 Patient here with urinary complaints, nausea, vomiting 2 but has started diarrhea. Patient with history of renal colic and appendectomy. Patient also states is menstruating which she states has been irregular for years. Patient ordered for IV fluid, labs, urine, Zofran, and spiral CT. Patient offered medicine but states will wait for results. 05/20/18 18:48 Laboratory Tests 05/20/18 05/20/18 17:26 17:26 WBC 20.0 H Hgb 12.8 Hct 39.0 MPV 11.4 H Neutrophils % 80.0 D Urine Ketones Pending Urine HCG, Qual Negative Patient ordered for blood cultures lactic acid chest x-ray and IV fluids. *DC/Admit/Observation/Transfer Diagnosis at time of Disposition: Kidney stone on right side, Fever, Urinary tract infection - Discharge Dispostion Condition at time of disposition: Improved - Referrals - Patient Instructions - Post Discharge Activity
[2018-05-20] MEDS ORDERED: ONDANSETRON *ODT* 4 MG TABLET SL ONE (17:13)
[2018-05-20] MEDS ORDERED: ONDANSETRON *ODT* 4 MG TABLET ONE (17:27)
[2018-05-20 17:35] LABS: BASO % 0.5 % (0-2.0); EOS % 1.1 % (0-4.5); HEMOGLOBIN 12.8 GM/dL (10.7-15.3); LYMPH % 11.4 % (8-40); MCH 27.1 pg (25.7-33.7); MCHC 32.9 g/dl (32.0-36.0); MEAN CELL VOLUME 82.4 fl (80-96); MEAN PLT VOLUME 11.4 fl (7.5-11.1); PLATELET COUNT 251 K/MM3 (134-434); RBC 4.73 M/mm3 (3.60-5.2); RDW 15.3 % (11.6-15.6)
[2018-05-20 18:03] LABS: HCG,QUALITATIVE URINE NEGATIVE
[2018-05-20 18:25] LABS: INR 1.03 (0.82-1.09); PROTHROMBIN TIME (PATIENT) 11.6 SEC (9.7-13.0)
[2018-05-20] MEDS ORDERED: morphine CARPU-JECT 2 MG/1 ML DISP.SYRIN IVPUSH ONE (18:33)
[2018-05-20 18:53] LABS: URINE APPEARANCE CLOUDY; URINE BILIRUBIN NEGATIVE (<2.0 mg/dL); URINE COLOR DKYELLOW; URINE GLUCOSE (UA) NEGATIVE (NEGATIVE); URINE KETONE NEGATIVE (NEGATIVE); URINE NITRITE NEGATIVE (NEGATIVE); URINE UROBILINOGEN NEGATIVE mg/dL (0.2-1.0)
[2018-05-20 19:00] LABS: URINE LEUK ESTERASE 3+ (NEGATIVE); URINE PROTEIN 1+ (NEGATIVE)
[2018-05-20 19:03] LABS: EPI CELLS FEW /HPF (FEW)
[2018-05-20] MEDS ORDERED: morphine SULFATE 4 MG/ML VIAL ONE (19:27)
[2018-05-20] MEDS ORDERED: CEFTRIAXONE 1,000 MG in DEXTROSE 5%-WATER - 50 ML IVPB ONE (20:49)
[2018-05-20 20:50] LABS: PLATELET ESTIMATE ADEQUATE
--- NOTE | 2018-05-20 21:00 | PDOC ---
*Physical Exam - Vital Signs Last Vital Signs Temp Pulse Resp BP Pulse Ox 98.3 F 96 H 17 112/78 99 05/20/18 16:31 05/20/18 16:31 05/20/18 16:31 05/20/18 16:31 05/20/18 16:31 - Physical Exam General Appearance: Yes: Appropriately Dressed Gastrointestinal/Abdominal: positive: Normal Bowel Sounds, Tender (RLQ), Soft Musculoskeletal: positive: CVA Tenderness (R) Extremity: positive: Normal Capillary Refill, Normal Inspection Integumentary: positive: Normal Color, Dry, Warm Neurologic: positive: Fully Oriented, Alert, Normal Mood/Affect ED Treatment Course - LABORATORY CBC & Chemistry Diagram: 05/20/18 17:26 05/20/18 20:20 - ADDITIONAL ORDERS Additional order review: Laboratory Results 05/20/18 05/20/18 05/20/18 19:56 17:26 17:26 PT with INR INR Sodium Cancelled Potassium Cancelled Chloride Cancelled Carbon Dioxide Cancelled Anion Gap Cancelled BUN Cancelled Creatinine Cancelled Creat Clearance w eGFR Cancelled Random Glucose Cancelled Lactic Acid 1.2 Calcium Cancelled Total Bilirubin Cancelled AST Cancelled ALT Cancelled Alkaline Phosphatase Cancelled Total Protein Cancelled Albumin Cancelled Urine Color Dkyellow Urine Appearance Cloudy Urine pH 7.0 Ur Specific Decker 1.016 Urine Protein 1+ H Urine Glucose (UA) Negative Urine Ketones Negative Urine Blood 3+ H Urine Nitrite Negative Urine Bilirubin Negative Urine Urobilinogen Negative Ur Leukocyte Esterase 3+ H Urine WBC (Auto) 314 Urine RBC (Auto) 1413 Ur Epithelial Cells Few Urine HCG, Qual Negative 05/20/18 17:26 PT with INR 11.60 INR 1.03 Sodium Potassium Chloride Carbon Dioxide Anion Gap BUN Creatinine Creat Clearance w eGFR Random Glucose Lactic Acid Calcium Total Bilirubin AST ALT Alkaline Phosphatase Total Protein Albumin Urine Color Urine Appearance Urine pH Ur Specific Decker Urine Protein Urine Glucose (UA) Urine Ketones Urine Blood Urine Nitrite Urine Bilirubin Urine Urobilinogen Ur Leukocyte Esterase Urine WBC (Auto) Urine RBC (Auto) Ur Epithelial Cells Urine HCG, Qual 05/20/18 17:26 RBC 4.73 MCV 82.4 MCHC 32.9 RDW 15.3 MPV 11.4 H Neutrophils % 80.0 D Lymphocytes % 11.4 D Monocytes % 7.0 Eosinophils % 1.1 Basophils % 0.5 - Medications Given in the ED: ED Medications Discontinued Medications Generic Name Dose Route Start Last Admin Trade Name Mark PRN Reason Stop Dose Admin Sodium Chloride 1,000 mls @ 1,000 mls/hr 05/20/18 16:37 05/20/18 17:33 Normal Saline - IV 05/20/18 17:36 1,000 mls/hr ASDIR STA Administration Sodium Chloride 1,000 mls @ 1,000 mls/hr 05/20/18 18:32 05/20/18 19:30 Normal Saline - IV 05/20/18 19:31 1,000 mls/hr ASDIR STA Administration Morphine Sulfate 4 mg 05/20/18 18:33 05/20/18 19:30 Morphine Injection - IVPUSH 05/20/18 18:34 4 mg ONCE ONE Administration Ondansetron HCl 4 mg 05/20/18 17:13 05/20/18 17:33 Zofran Odt - SL 05/20/18 17:14 4 mg ONCE ONE Administration Medical Decision Making - Medical Decision Making 05/20/18 22:[address] Hilario . Patient to the OR [facility]. patient has been NPO for several hours with last ice chip 1 hour ago, Patient is aware of current plan 05/20/18 23:16 Patient signed out to Dr. Nagel / Dr. grady *DC/Admit/Observation/Transfer Diagnosis at time of Disposition: Kidney stone on right side Fever Qualifiers: Fever type: due to other condition Qualified Code(s): R50.81 - Fever presenting with conditions classified elsewhere Urinary tract infection Qualifiers: Urinary tract infection type: acute pyelonephritis Qualified Code(s): N10 - Acute pyelonephritis - Discharge Dispostion Decision to Admit order: Yes - Referrals - Patient Instructions - Post Discharge Activity
[2018-05-20 21:15] LABS: ALBUMIN 3.3 g/dl (3.4-5.0); ALK PHOS 76 U/L (45-117); ANION GAP 7 (8-16); BILIRUBIN,TOTAL 0.6 mg/dL (0.2-1.0); BLOOD UREA NITROGEN 7 mg/dL (7-18); CALCIUM 8.2 mg/dL (8.5-10.1); CHLORIDE 108 mmol/L (98-107); CO2 27 mmol/L (21-32); CREATININE 0.7 mg/dL (0.55-1.02); GLUCOSE,RANDOM 87 mg/dL (74-106); POTASSIUM 3.9 mmol/L (3.5-5.1); SGOT/AST 12 U/L (15-37); SGPT/ALT 22 U/L (12-78); SODIUM 142 mmol/L (136-145); TOT PROT 6.6 g/dl (6.4-8.2)
[2018-05-20] MEDS ORDERED: CEFTRIAXONE 1 GM/50 ML BAG ONE (21:40)
[2018-05-20] MEDS ORDERED: KETOROLAC TROMETHAMINE 30 MG/1 ML VIAL IVPUSH ONE (21:42)
[2018-05-20] MEDS ORDERED: ACETAMINOPHEN 1000 MG/100 ML VIAL (NON FORMULARY) IVPB ONE (21:47)
[2018-05-20] MEDS ORDERED: ONDANSETRON 4 MG/2 ML VIAL IVPUSH ONE (22:13)
--- NOTE | 2018-05-20 23:41 | HP ---
CHIEF COMPLAINT: RLQ abdominal pain PCP: Dr. Estrella HISTORY OF PRESENT ILLNESS: 43F w/ hx of nephrolithiasis and asthma/COPD who presents with RLQ abdominal pain x 2 days. Per pt, she was in her USOH until a week and a half ago when she had an episode of RLQ abdominal pain which lasted for several hours and resolved with tylenol. She had another episode a few days later which was similar and resolved. Then, she was fine until yesterday morning when she awoke with constant, 10/10, sharp RLQ abdominal pain, radiating to her groin, and mildly improved with midol and tylenol and lying on her left side. The pain was associated with urinary frequency and urgency, but no dysuria or hematuria. She endorses nausea, 2 episodes of NBNB emesis, and 2 episodes of diarrhea. Pt also endorses malodorous vaginal bleeding that began this morning. She states that her menses are irregular, usually last about 2-4 days, with heavy bleeding in the beginning and light bleeding towards the end. Her LMP was April 29. Pt denies fevers, chills, chest pain, SOB, cough, and constipation. Of note, pt had an episode of nephrolithiasis in 2010 for which she was hospitalized for 4 days. Pt states that the stone passed by itself. She states that she has not had any further episodes since then. ER course was notable for: (1) history (2) right sided abdominal tenderness (3) fever, tachycardia, leukocytosis, UA, CT abdomen (4) ED meds- zofran, toradol, tylenol, normal saline, morphine, ceftriaxone Recent Travel: PAST MEDICAL HISTORY: as stated above PAST SURGICAL HISTORY: appendectomy x 2 Social History: Smokin/2 PPD x 30 years Alcohol: denies Drugs: denies Pt lives with son in [place]. 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 Family History: denies Allergies No Known Allergies Allergy (Verified 05/20/18 16:31) HOME MEDICATIONS: Home Medications Medication Instructions Recorded Albuterol Sulfate Inhaler - 1 - 2 inh PO Q4H #1 inhaler 03/15/18 [Ventolin HFA Inhaler -] Albuterol Sulfate Inhaler - 1 puff IH Q4H #1 inhaler 03/15/18 [Ventolin HFA Inhaler -] Cephalexin Monohydrate [Keflex -] 500 mg PO BID #14 capsule 03/15/18 Cephalexin [Keflex] 500 mg PO BID #20 capsule 03/15/18 REVIEW OF SYSTEMS CONSTITUTIONAL: Absent: fever, chills, diaphoresis, generalized weakness, malaise, loss of appetite, weight change HEENT: Absent: rhinorrhea, nasal congestion, throat pain, throat swelling, difficulty swallowing, mouth swelling, ear pain, eye pain, visual changes CARDIOVASCULAR: Absent: chest pain, syncope, palpitations, irregular heart rate, lightheadedness , peripheral edema RESPIRATORY: Absent: cough, shortness of breath, dyspnea with exertion, orthopnea, wheezing, stridor, hemoptysis GASTROINTESTINAL: Absent: constipation, melena, hematochezia present: abdominal pain, n/v/d GENITOURINARY: Absent: dysuria, hesitancy, hematuria, flank pain, genital pain present: frequency, urgency MUSCULOSKELETAL: Absent: myalgia, arthralgia, joint swelling, back pain, neck pain SKIN: Absent: rash, itching, pallor HEMATOLOGIC/IMMUNOLOGIC: Absent: easy bleeding, easy bruising, lymphadenopathy, frequent infections ENDOCRINE: Absent: unexplained weight gain, unexplained weight loss, heat intolerance, cold intolerance NEUROLOGIC: Absent: headache, focal weakness or paresthesias, dizziness, unsteady gait, seizure, mental status changes, bladder or bowel incontinence PSYCHIATRIC: Absent: anxiety, depression, suicidal or homicidal ideation, hallucinations. PHYSICAL EXAMINATION Vital Signs - 24 hr 05/20/18 05/20/18 16:31 21:47 Temperature 98.3 F 101.9 F H Pulse Rate 96 H Respiratory 17 Rate Blood Pressure 112/78 O2 Sat by Pulse 99 Oximetry (%) GENERAL: middle aged female, awake, alert, and fully oriented, in minimal distress. HEENT: NC, AT LUNGS: Breath sounds equal, clear to auscultation bilaterally. No wheezes, and no crackles. No accessory muscle use. HEART: tachycardic, regular rhythm, normal S1 and S2 without murmur, rub or gallop. ABDOMEN: obese abdomen, soft, moderately tender in RUQ and RLQ, minimally tender in LLQ and LUQ, normoactive BS Back: no CVA tenderness MUSCULOSKELETAL: 2+ peripheral edema NEUROLOGICAL: Cranial nerves II-XII intact. Normal speech. Laboratory Results - last 24 hr 05/20/18 05/20/18 05/20/18 17:26 17:26 17:26 WBC 20.0 H RBC 4.73 Hgb 12.8 Hct 39.0 MCV 82.4 MCH 27.1 MCHC 32.9 RDW 15.3 Plt Count 251 MPV 11.4 H Absolute Neuts (auto) 16.0 Total Counted 100 Neutrophils % 80.0 D Neutrophils % (Manual) 74.0 Band Neutrophils % 1.0 Lymphocytes % 11.4 D Lymphocytes % (Manual) 18.0 Monocytes % 7.0 Monocytes % (Manual) 5 Eosinophils % 1.1 Eosinophils % (Manual) 1.0 Basophils % 0.5 Nucleated RBC % 0 Platelet Estimate Adequate PT with INR 11.60 INR 1.03 Sodium Potassium Chloride Carbon Dioxide Anion Gap BUN Creatinine Creat Clearance w eGFR Random Glucose Lactic Acid Calcium Total Bilirubin AST ALT Alkaline Phosphatase Total Protein Albumin Urine Color Dkyellow Urine Appearance Cloudy Urine pH 7.0 Ur Specific [place] 1.016 Urine Protein 1+ H Urine Glucose (UA) Negative Urine Ketones Negative Urine Blood 3+ H Urine Nitrite Negative Urine Bilirubin Negative Urine Urobilinogen Negative Ur Leukocyte Esterase 3+ H Urine WBC (Auto) 314 Urine RBC (Auto) 1413 Ur Epithelial Cells Few Urine HCG, Qual Negative 05/20/18 05/20/18 05/20/18 17:26 19:56 20:20 WBC RBC Hgb Hct MCV MCH MCHC RDW Plt Count MPV Absolute Neuts (auto) Total Counted Neutrophils % Neutrophils % (Manual) Band Neutrophils % Lymphocytes % Lymphocytes % (Manual) Monocytes % Monocytes % (Manual) Eosinophils % Eosinophils % (Manual) Basophils % Nucleated RBC % Platelet Estimate PT with INR INR Sodium Cancelled 142 Potassium Cancelled 3.9 Chloride Cancelled 108 H Carbon Dioxide Cancelled 27 Anion Gap Cancelled 7 L BUN Cancelled 7 Creatinine Cancelled 0.7 Creat Clearance w eGFR Cancelled > 60 Random Glucose Cancelled 87 Lactic Acid 1.2 Calcium Cancelled 8.2 L Total Bilirubin Cancelled 0.6 AST Cancelled 12 L ALT Cancelled 22 Alkaline Phosphatase Cancelled 76 Total Protein Cancelled 6.6 Albumin Cancelled 3.3 L Urine Color Urine Appearance Urine pH Ur Specific [place] Urine Protein Urine Glucose (UA) Urine Ketones Urine Blood Urine Nitrite Urine Bilirubin Urine Urobilinogen Ur Leukocyte Esterase Urine WBC (Auto) Urine RBC (Auto) Ur Epithelial Cells Urine HCG, Qual CT abdomen: 7x9mm proximal right ureteral calculus w/ mild hydronephrosis ASSESSMENT/PLAN: 43F w/ hx of nephrolithiasis and asthma/COPD who presents with acute RLQ abdominal pain radiating to groin, associated with n/v/d, found to have fever, tachycardia, leukocytosis, UA consistent with UTI, and CT showing a right ureteral stone. #RLQ abdominal pain -likely 2/2 right ureteral stone -urology consulted, Dr. Royal, f/u recs. Pt to get cysto/right ureteral stent. -continue fluids -pain control with morphine -NPO for urologic procedure #sepsis 2/2 UTI -fever, tachycardia, and leukocytosis -UA with 3+ LE, 314 wbc -continue ceftriaxone -continue fluids -f/u Ucx -trend wbc count and temps -urology on board #cystic structure in cervix -OBGYN consulted, f/u recs #tobacco use -nicotine patch PRN #FEN/ppx -NS @ 100cc/hr -electrolytes wnl -NPO for procedure -no GI ppx indicated -heparin held 2/2 procedure Case discussed with attending, Dr. Diana. -Ankit Pizano MD PGY1 Visit type - Emergency Visit Emergency Visit: Yes ED Registration Date: 05/20/18 Care time: The patient presented to the Emergency Department on the above date and was hospitalized for further evaluation of their emergent condition. - New Patient This patient is new to me today: Yes Date on this admission: 05/21/18 - Critical Care Critical Care patient: No Hospitalist Screening - Colonoscopy Questionnaire Colonoscopy Questionnaire: Colonoscopy Questionnaire - Patient: 50 - 75 years old and never had a screening colonoscopy: Unknown History of colon or rectal polyps, or CA: Unknown History of IBD, Crohn's disease or UC: Unknown History of abdominal radiation therapy as a child: Unknown - Relative: 1 with colon or rectal CA, or polyps at age 60 or younger: Unknown Colon or rectal CA diagnosed at age 45 or younger: Unknown Multiple relatives with colon or rectal CA: Unknown - Outcome: Screening Result: Negative Screen
[2018-05-20] MEDS ORDERED: SODIUM CHLORIDE 1,000 ML IV SCH (23:45)
[2018-05-20] MEDS ORDERED: ACETAMINOPHEN 1000 MG/100 ML VIAL (NON FORMULARY) IVPB PRN (23:45)
[2018-05-20] MEDS ORDERED: morphine SULFATE 4 MG/ML VIAL IVPUSH PRN (23:47)
[2018-05-20] MEDS ORDERED: PROMETHAZINE HCL 25 MG/1 ML VIAL IVPUSH PRN (23:49)
--- NOTE | 2018-05-21 00:04 | CON.GU ---
Consult - History of Present Illness History of Present Illness: 43 yo female with acute onset of rt renal colic, fever. NCCT shows partially obstructing right prox ureteral stone. UA with large WBC, elevated WBC of 20 - Past Medical History ...LMP: 10/09/17 - Alcohol/Substance Use Hx Alcohol Use: No - Smoking History Smoking history: Current every day smoker Have you smoked in the past 12 months: Yes Aproximately how many cigarettes per day: 15 Home Medications - Allergies Allergies/Adverse Reactions: Allergies Allergy/AdvReac Type Severity Reaction Status Date / Time No Known Allergies Allergy Verified 05/20/18 16:31 - Home Medications Home Medications: Ambulatory Orders Albuterol Sulfate Inhaler - [Ventolin HFA Inhaler -] 1 - 2 inh PO Q4H #1 inhaler 03/15/18 Albuterol Sulfate Inhaler - [Ventolin HFA Inhaler -] 1 puff IH Q4H #1 inhaler Cephalexin Monohydrate [Keflex -] 500 mg PO BID #14 capsule 03/15/18 Cephalexin [Keflex] 500 mg PO BID #20 capsule 03/15/18 Physical Exam- Vital Signs: Vital Signs Temperature 101.9 F H 05/20/18 21:47 Pulse Rate 96 H 05/20/18 16:31 Respiratory Rate 17 05/20/18 16:31 Blood Pressure 112/78 05/20/18 16:31 O2 Sat by Pulse Oximetry (%) 99 05/20/18 16:31 Renal/: Yes: Other (no CVAT) Labs: CBC, BMP 05/20/18 17:26 05/20/18 20:20 Imaging - Results Cat Scan: Report Reviewed Assessment/Plan plan for emergent cysto/rt ureteral stent placement
[2018-05-21] MEDS ORDERED: PROPOFOL 20 ML ONE ×2 (00:07)
[2018-05-21] MEDS ORDERED: SUCCINYLCHOLINE CHLORIDE 200 MG/10 ML VIAL ONE (00:07)
[2018-05-21] MEDS ORDERED: DEXAMETHASONE SOD PHOSPHATE 4 MG/1 ML VIAL ONE (00:18)
[2018-05-21] MEDS ORDERED: GENTAMICIN SO4 80 MG/2 ML VIAL ONE (00:18)
[2018-05-21] MEDS ORDERED: GENTAMICIN SO4 80 MG/2 ML VIAL IVPB ONE (00:20)
[2018-05-21] MEDS ORDERED: IOHEXOL 300 MG/ML INFUS..BTL IJ ONE (00:22)
--- NOTE | 2018-05-21 00:33 | OP ---
Operative Note - Note: Operative Date: 05/21/18 Pre-Operative Diagnosis: obstructing RPU stone Operation: cysto/rt retrograde/ureteral stent placement Findings: RPU stone Post-Operative Diagnosis: Same as Pre-op Surgeon: Rich Perera Anesthesia: General Drains & Tubes with Location: 7fr, 22cm stent Operative Report Dictated: Yes
[2018-05-21] MEDS ORDERED: ONDANSETRON 4 MG/2 ML VIAL IVPUSH PRN (00:41)
[2018-05-21] MEDS ORDERED: LACTATED RINGERS SOLUTION 1,000 ML IV SCH (00:45)
[2018-05-21] MEDS ORDERED: PROMETHAZINE HCL 25 MG/1 ML VIAL IVPUSH PRN (00:51)
[2018-05-21] MEDS ORDERED: morphine SULFATE 4 MG/ML VIAL IVPUSH PRN ×2 (00:51→11:19)
[2018-05-21] MEDS ORDERED: SODIUM CHLORIDE 1,000 ML IV SCH (00:51)
[2018-05-21] MEDS ORDERED: ACETAMINOPHEN 1000 MG/100 ML VIAL (NON FORMULARY) IVPB PRN (00:51)
--- NOTE | 2018-05-21 00:58 | OP ---
DATE OF OPERATION: 05/21/2018 PREOPERATIVE DIAGNOSIS: Obstructing right proximal ureteral stone. POSTOPERATIVE DIAGNOSIS: Obstructing right proximal ureteral stone. PROCEDURE: Cystoscopy and right pyelogram with ureteral stent placement. SURGEON: Mague Weber MD INDICATIONS: Patient is a 43-year-old female admitted with right renal colic secondary to obstructing 9-mm stone in the right proximal ureter. She had fever, elevated white blood cell count. In light of these findings, she was taken to the OR emergently for right ureteral stent placement. Understands the risks of bleeding, infection, potential inability to place the stent, and potential need for percutaneous nephrostomy due to stent placement. Also understands the need for return to the OR at a later date to actually break up the stone. DESCRIPTION OF PROCEDURE: After informed consent was obtained, the patient was taken to the OR and placed supine on the table. desk monitor and administration of general anesthesia was established. She was prepped and draped in the dorsal lithotomy position. The rigid cystoscope was inserted without difficulty and the bladder visualized. No tumors or stones noted in the bladder. Attention was turned to the right ureteral orifice. The suprapubic catheter and small amount of contrast was used to opacify the collecting system. There was hydronephrosis noted. The guidewire was advanced into the right renal pelvis. Over the guidewire, a 7-Bulgarian 22-cm stent was advanced in the Coates fashion. Fluoroscopy confirmed the stent to be in good position. Patient was then awoke from anesthesia and transferred to recovery in stable condition. There were no complications. Estimated blood loss was minimal. MAGUE WEBER M.D. [id number]
--- NOTE | 2018-05-21 03:08 | PN ---
Teaching Attending Note Name of Resident: Ankit Pizano ATTENDING PHYSICIAN STATEMENT I saw and evaluated the patient. I reviewed the resident's note and discussed the case with the resident. I agree with the resident's findings and plan as documented. SUBJECTIVE: Patient is a 43 year old woman with history of renal colic and appendectomy presents the ED with complaints of lower abdominal cramping radiating to her flank region associated nausea, vomiting 2 and one episode of brown watery diarrhea. Patient also states has vaginal bleeding despite having her menses on April 29. Patient also states urinary frequency and urgency without burning, fever or chills. She is a smoker, has asthma, has irregular menstrual periods, is on Vitamin D and has never had workup for kidney stone disease. OBJECTIVE: Obese. Alert and in pain. Vital Signs Period Temp Pulse Resp BP Sys/Rubi Pulse Ox Last 24 Hr 98.3 F-101.9 F 85-108 16-23 112-144/61-78 92-99 HEENT: No Jaundice, eye redness or discharge, PERRLA, EOMI. Normocephalic, atraumatic. External ears are normal and hearing is grossly intact. No nasal discharge. Neck: Supple, nontender. No palpable adenopathy or thyromegaly. No JVD Chest: Good effort. Clear to auscultation and percussion. Heart: Regular. No S3, rub or murmur Abdomen: Right flank and RLQ tenderness, soft, no HSM. No rebound or guarding. Normoactive bowel sounds. Ext: Peripheral pulses intact. Leg edema. Skin: Warm and dry. No petechiae, rash or ecchymosis. Neuro: Alert. Oriented x3. CN 2-12 grossly intact. Sensation grossly intact in all four extremities and DTR are symmetric. Current Medications Generic Name Dose Route Start Last Admin Trade Name Freq PRN Reason Stop Dose Admin Acetaminophen 1,000 mg 05/21/18 00:51 Ofirmev Injection - IVPB Q8H PRN FEVER Fentanyl 50 mcg 05/21/18 00:41 05/21/18 01:15 Sublimaze Injection - IVPUSH 50 mcg [id number] PRN Administration PAIN-PACU ORDER X 4 DOSES ONLY Lactated Ringer's 1,000 mls @ 125 mls/hr 05/21/18 00:45 Lactated Ringers Solution IV ASDIR ALEJANDRO Ceftriaxone Sodium 1 gm/ 50 mls @ 100 mls/hr 05/21/18 18:00 Dextrose IVPB DAILY ALEJANDRO Protocol Sodium Chloride 1,000 mls @ 100 mls/hr 05/21/18 00:51 05/21/18 01:35 Normal Saline - IV 0 mls ASDIR ALEJANDRO Administration Morphine Sulfate 4 mg 05/21/18 00:51 Morphine Sulfate IVPUSH Q4H PRN PAIN LEVEL 6-10 Nicotine 14 mg 05/21/18 10:00 Nicoderm Patch - TD DAILY ALEJANDRO Ondansetron HCl 4 mg 05/21/18 00:41 Zofran Injection IVPUSH Q6H PRN NAUSEA AND/OR VOMITING Promethazine HCl 12.5 mg 05/21/18 00:51 Phenergan Injection - IVPUSH Q6H PRN NAUSEA Home Medications Medication Instructions Recorded Albuterol Sulfate Inhaler - 1 - 2 inh PO Q4H #1 inhaler 03/15/18 [Ventolin HFA Inhaler -] Albuterol Sulfate Inhaler - 1 puff IH Q4H #1 inhaler 03/15/18 [Ventolin HFA Inhaler -] Cephalexin Monohydrate [Keflex -] 500 mg PO BID #14 capsule 03/15/18 Cephalexin [Keflex] 500 mg PO BID #20 capsule 03/15/18 Abnormal Lab Results 05/20/18 05/20/18 05/20/18 17:26 17:26 20:20 WBC 20.0 H MPV 11.4 H Chloride 108 H Anion Gap 7 L Calcium 8.2 L AST 12 L Albumin 3.3 L Urine Protein 1+ H Urine Blood 3+ H Ur Leukocyte Esterase 3+ H ASSESSMENT AND PLAN: 1. Sepsis due to right pyelonephritis - CT shows an obstructing ureteral stone with hydronephrosis. Will continue Rocephin 1 gm IV q 24 hours and IV NS. Urology is seeing patient for possible cystoscopy. Will refer to nephrology as outpatient for stone disease workup. Hold Vit D and check level. 2. Complex cervical cyst and enlarged uterus seen on sonogram - Refer to ENGINEERING DESIGN MANAGER for further workup and also to evaluate the irregular menses. 3. Unexplained leg edema - monitor closely as outpatient and get ECHO if it persists. 4. Tobacco use - Provide all the necessary assistance to facilitate smoking cessation and give her nicotine patch. 5. DVT prophylaxis - Heparin 5000u sq tid. 6. Advance directives - Full code
[2018-05-21 05:06] LABS: URINE APPEARANCE CLEAR; URINE BILIRUBIN NEGATIVE (<2.0 mg/dL); URINE COLOR LTYELLOW; URINE GLUCOSE (UA) NEGATIVE (NEGATIVE); URINE KETONE TRACE (NEGATIVE); URINE LEUK ESTERASE TRACE (NEGATIVE); URINE NITRITE NEGATIVE (NEGATIVE); URINE PROTEIN NEGATIVE (NEGATIVE); URINE UROBILINOGEN NEGATIVE mg/dL (0.2-1.0)
[2018-05-21 05:11] LABS: HCG,QUALITATIVE URINE NEGATIVE
[2018-05-21 05:13] LABS: EPI CELLS RARE /HPF (FEW); URINE BACTERIA RARE /hpf (NONE SEEN); URINE MUCUS FEW
[2018-05-21 07:56] LABS: BASO % 0.3 % (0-2.0); HEMOGLOBIN 11.7 GM/dL (10.7-15.3); LYMPH % 7.7 % (8-40); MCH 27.4 pg (25.7-33.7); MCHC 32.5 g/dl (32.0-36.0); MEAN CELL VOLUME 84.1 fl (80-96); MONO % 1.7 % (3.8-10.2); NEUT % 90.3 % (42.8-82.8); PLATELET COUNT 223 K/MM3 (134-434); RBC 4.28 M/mm3 (3.60-5.2); RDW 15.8 % (11.6-15.6)
[2018-05-21 08:26] LABS: CHLORIDE 107 mmol/L (98-107); POTASSIUM 4.2 mmol/L (3.5-5.1); SODIUM 138 mmol/L (136-145)
[2018-05-21 09:03] LABS: ALBUMIN 3.1 g/dl (3.4-5.0); ALK PHOS 77 U/L (45-117); ANION GAP 8 (8-16); BILIRUBIN,TOTAL 0.5 mg/dL (0.2-1.0); BLOOD UREA NITROGEN 7 mg/dL (7-18); CALCIUM 8.4 mg/dL (8.5-10.1); CO2 23 mmol/L (21-32); CREATININE 0.7 mg/dL (0.55-1.02); GLUCOSE,RANDOM 133 mg/dL (74-106); SGOT/AST 13 U/L (15-37); SGPT/ALT 23 U/L (12-78); TOT PROT 6.5 g/dl (6.4-8.2)
--- NOTE | 2018-05-21 09:26 | CON.OBG ---
Consult Consult Specialty:: matlab developer Referred by:: Jerica Pham MD Reason for Consultation:: complex structure cervix & bleeding - History of Present Illness Chief Complaint: 43 yrs ,ectopic 1 , LMP 04/29/18 , followed by Bleeding again on 05/18/18 admitted for Renal colick sudden onset of abd pain, frequency burning urination for 2 days , ct scan enlarged uterus, rt ureteric pelvic junction calculus obstructing s/p cystoscopy rt side retrograde insertion of ureteric stent on 05/21/[address] Lopez .em 5 mm. Pelvic & TV sono ut 13.4xx7.1cmx6.1 cm , cervix shows complex 5.7x3.7x3.6 cm complex structer within cervix , possible nabothian follicle cyst History of Present Illness: pt has h/o irregular episode of abnormal bleeding again on 05/18/18, sometimes passing blood clots . pt states she passed blood clot after she had sonogram. pt continue to bleed. charlene is known to me from [address] [place] [address] , Last seen in Dec . she was diagnosed bacterial vaginal infection treated, std check was done normal , except positive igg for herpes Pa MH regular cycle 28-30 days, moderate bleeding , cramps sometimes Contraception none OB HX G1 primary c/section 1995 G2 Ind Ab 12 weeks G3 Sp ab 1st trimester G4 Sp ab 1st trimester G5 Repeat c/section 2000 G6 expl lap , ectopic pregn Rt salpingectomy at [facility] - History Source History Provided By: Patient, Medical Record Limitations to Obtaining History: No Limitations - Past Medical History LADIES' HAT TRIMMER: No: Migraine, Seizure Cardio/Vascular: No: HTN Pulmonary: Yes: Asthma Gastrointestinal: Yes: Other (no gi [roblems ) Hepatobiliary: Yes: Other (declines ) Reproductive: Yes: Ectopic (2001), Other (does not remember date of last pap. < 1 yr ago . 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 , current is abn period ) ...: No (ucg neg ) ...: 6 (1 ind ab & 2 sp ab ) ...Para: 2 (c/section 1995, 2000) Heme/Onc: No: Anemia Infectious Disease: Yes: Other (h/o herpes igg pos ) Psych: Yes: Other (declins mental health disorders ) Endocrine: No: Diabetes Mellitus, Hyperthyroidism, Hypothyroidism - Past Surgical History Past Surgical History: Yes: Appendectomy, (1995, 2000) Additional Surgical History: expl lap rt salpingectomy for ectopic pregn 2001 - Alcohol/Substance Use Hx Alcohol Use: No History of Substance Use: reports: None - Smoking History Smoking history: Current every day smoker Have you smoked in the past 12 months: Yes Aproximately how many cigarettes per day: 15 Home Medications - Allergies Allergies/Adverse Reactions: Allergies Allergy/AdvReac Type Severity Reaction Status Date / Time No Known Allergies Allergy Verified 05/20/18 16:31 - Home Medications Home Medications: Ambulatory Orders Albuterol Sulfate Inhaler - [Ventolin HFA Inhaler -] 1 puff IH Q4H PRN 05/21/18 Physical Exam-ROAD SUPERVISOR OF ENGINES Vital Signs: Vital Signs Temperature 97.7 F 05/21/18 08:58 Pulse Rate 83 05/21/18 08:58 Respiratory Rate 20 05/21/18 08:58 Blood Pressure 123/69 05/21/18 08:58 O2 Sat by Pulse Oximetry (%) 97 05/21/18 01:15 Constitutional: Yes: Well Nourished, Moderate Distress Eyes: Yes: WNL HENT: Yes: WNL Neck: Yes: WNL Cardiovascular: Yes: WNL Respiratory: Yes: WNL Gastrointestinal: Yes: WNL, Abdomen, Obese Renal/: Yes: CVA Tenderness - Right. No: Pelvis: Yes: Tenderness (lower abdome) External Genitalia: Yes: Normal Internal Exam Deferred: Yes Vaginal Exam: Yes: Normal, Bleeding Cervix: Yes: Normal (no cyst noted), Bleeding Uterus: Yes: Normal, Other (exam is tender due to today AM surgery . examination is unsatisfactry due to pain & obesity) Adnexa: Normal: Bilateral, Tender: Bilateral Breast(s): Yes: WNL. No: Other Musculoskeletal: Yes: WNL Extremities: Yes: WNL. No: Calf Tenderness Edema: No Integumentary: Yes: Incision (old pfannensteil scar), Tattoos Neurological: Yes: WNL ...Motor Strength: WNL Psychiatric: Yes: WNL Labs: CBC, BMP 05/21/18 06:30 05/21/18 06:30 Laboratory Tests 05/20/18 05/21/18 05/21/18 17:26 04:45 06:30 ALT 23 Alkaline Phosphatase 77 Urine Protein 1+ H Urine Blood 3+ H Ur Leukocyte Esterase 3+ H Urine WBC (Auto) 314 Urine RBC (Auto) 1413 Urine HCG, Qual Negative Problem List - Problems (1) Kidney stone on right side Code(s): N20.0 - CALCULUS OF KIDNEY (2) Abdominal pain Code(s): R10.9 - UNSPECIFIED ABDOMINAL PAIN (3) Urinary tract infection Code(s): N39.0 - URINARY TRACT INFECTION, SITE NOT SPECIFIED Qualifiers: Urinary tract infection type: acute pyelonephritis Qualified Code(s): N10 - Acute pyelonephritis (4) Irregular periods Code(s): N92.6 - IRREGULAR MENSTRUATION, UNSPECIFIED (5) Menorrhagia Code(s): N92.0 - EXCESSIVE AND FREQUENT MENSTRUATION WITH REGULAR CYCLE Assessment/Plan 43 yrs ectopic 1 , s/p Rupj obstructing calculus s/p rt retrograde stent insertiion rx iv Ceftriaxione for Ac pyelonephritis Irregular , heavy period currently ., em 5 mm, should subside on it's own .It is her 1st episode complex structure seen in cervix is possible blood clot . No active jde developer management currently . she can follow at [address] [place] [address] clinic after discharge .
[2018-05-21] MEDS: NICOTINE 14 MG/24 HOURS TOPICAL PATCH TD SCH (09:51)
[2018-05-21] MEDS: SODIUM CHLORIDE 1,000 ML IV SCH ×3 (09:52→21:41)
[2018-05-21] MEDS ORDERED: NICOTINE 14 MG/24 HOURS TOPICAL PATCH TD SCH (10:00)
[2018-05-21] MEDS: HEPARIN NA (PORCINE) 5,000 UNITS/ML 1ML VIAL SQ SCH ×2 (13:52→21:44)
--- NOTE | 2018-05-21 16:27 | PN ---
Teaching Attending Note Name of Resident: Rich Blackburn ATTENDING PHYSICIAN STATEMENT I saw and evaluated the patient. I reviewed the resident's note and discussed the case with the resident. I agree with the resident's findings and plan as documented. SUBJECTIVE: no fever or chills. cont to have R abd pain. NO SOB . states no tAbx since December OBJECTIVE: NAD. MMM CV: RRR Lungs: CTAB Abd: obese, soft, ND, TTP in suprapubic and RLQ pain Ext : no edema ASSESSMENT AND PLAN: 43 y/o lady with h/o nephrolithiasis who presented with abd pain and was found ot have sepsis due to UTI in setting of R UPJ obstrucitng stone 1- Sepsis 2/2 UTI in setting of R UPJ obstructing stone. s/p cysto and stent placement - cont Ceftriaxone - stain all urine - follow urine cx - cont IVF - change morphine to oxycodone 2- vaginal bleeding: probably prolonged menses , emdometrial thickness 5 mm. US with a cystic structure in cervix thought to be blood clot by NETWORK OPERATIONS CENTER TECHNICIAN. - stable HB ., . - monitor - f/u with NETWORK OPERATIONS CENTER TECHNICIAN at dc 3- DVT PX : sq heparin dispo : HLOC
[2018-05-21] MEDS ORDERED: DEXTROSE 5%-WATER - 50 ML IVPB ONE (16:53)
[2018-05-21] MEDS ORDERED: cefTRIAXone SODIUM 1 GM VIAL ONE (16:53)
[2018-05-21] MEDS: CEFTRIAXONE 1 GM in DEXTROSE 5%-WATER - 50 ML IVPB SCH (17:03)
[2018-05-21] MEDS ORDERED: CEFTRIAXONE 1 GM in DEXTROSE 5%-WATER - 50 ML IVPB SCH (18:00)
--- NOTE | 2018-05-21 20:58 | PN ---
Physical Exam: SUBJECTIVE: Pt admitted for UTI and partially obstructing R UJ stone; s/p cystoscopy and stent placement. Currently pt feels slightly nauseous and has lower abdominal pain with some radiation to flank. She also endorses slight hematuria, however this has been clearing. OBJECTIVE: Vital Signs Period Temp Pulse Resp BP Sys/Rubi Pulse Ox Last 24 Hr 97.7 F-101.9 F 67-108 16-23 98-144/57-73 92-98 GENERAL: The patient is awake, alert, and fully oriented, in no acute distress. HEENT: EOMI, DASIA, MMM LUNGS: CTA bilaterally, no wheezes, no crackles, no accessory muscle use. HEART: RRR, S1, S2 without murmur ABDOMEN: Soft, ND, normoactive BS, RLQ abdominal pain with some suprapubic pain noted. BACK: No CVA tenderness b/l : Deferred pelvic exam due to recent examination by [employer] EMPLOYMENT ASSOCIATE EXTREMITIES: 2+ DP pulses, no edema. PSYCH: Normal mood, normal affect. SKIN: Warm, dry, no rashes or lesions noted Laboratory Results - last 24 hr 05/20/18 05/21/18 05/21/18 20:20 04:45 06:30 WBC 15.0 H RBC 4.28 Hgb 11.7 Hct 36.0 MCV 84.1 MCH 27.4 MCHC 32.5 RDW 15.8 H Plt Count 223 MPV 11.0 Absolute Neuts (auto) 13.6 Neutrophils % 90.3 H Lymphocytes % 7.7 L D Monocytes % 1.7 L Eosinophils % 0.0 D Basophils % 0.3 Nucleated RBC % 0 Sodium 142 Potassium 3.9 Chloride 108 H Carbon Dioxide 27 Anion Gap 7 L BUN 7 Creatinine 0.7 Creat Clearance w eGFR > 60 Random Glucose 87 Calcium 8.2 L Total Bilirubin 0.6 AST 12 L ALT 22 Alkaline Phosphatase 76 Total Protein 6.6 Albumin 3.3 L Urine Color Ltyellow Urine Appearance Clear Urine pH 6.0 Ur Specific [place] 1.009 Urine Protein Negative Urine Glucose (UA) Negative Urine Ketones Trace H Urine Blood 3+ H Urine Nitrite Negative Urine Bilirubin Negative Urine Urobilinogen Negative Ur Leukocyte Esterase Trace Urine WBC (Auto) 7 Urine RBC (Auto) 56 Ur Epithelial Cells Rare Urine Bacteria Rare Urine Mucus Few Urine HCG, Qual Negative 05/21/18 06:30 WBC RBC Hgb Hct MCV MCH MCHC RDW Plt Count MPV Absolute Neuts (auto) Neutrophils % Lymphocytes % Monocytes % Eosinophils % Basophils % Nucleated RBC % Sodium 138 Potassium 4.2 Chloride 107 Carbon Dioxide 23 Anion Gap 8 BUN 7 Creatinine 0.7 Creat Clearance w eGFR > 60 Random Glucose 133 H Calcium 8.4 L Total Bilirubin 0.5 AST 13 L ALT 23 Alkaline Phosphatase 77 Total Protein 6.5 Albumin 3.1 L Urine Color Urine Appearance Urine pH Ur Specific [place] Urine Protein Urine Glucose (UA) Urine Ketones Urine Blood Urine Nitrite Urine Bilirubin Urine Urobilinogen Ur Leukocyte Esterase Urine WBC (Auto) Urine RBC (Auto) Ur Epithelial Cells Urine Bacteria Urine Mucus Urine HCG, Qual Active Medications Generic Name Dose Route Start Last Admin Trade Name Freq PRN Reason Stop Dose Admin Acetaminophen 1,000 mg 05/21/18 00:51 Ofirmev Injection - IVPB Q8H PRN FEVER Heparin Sodium (Porcine) 5,000 unit 05/21/18 14:00 05/21/18 13:52 Heparin - SQ 5,000 unit TID ALEJANDRO Administration Ceftriaxone Sodium 1 gm/ 50 mls @ 100 mls/hr 05/21/18 18:00 05/21/18 17:03 Dextrose IVPB 100 mls/hr DAILY ALEJANDRO Administration Protocol Sodium Chloride 1,000 mls @ 150 mls/hr 05/21/18 08:04 05/21/18 13:51 Normal Saline - IV 150 mls/hr ASDIR ALEJANDRO Administration Nicotine 14 mg 05/21/18 10:00 05/21/18 09:51 Nicoderm Patch - TD 14 mg DAILY ALEJANDRO Administration Ondansetron HCl 4 mg 05/21/18 00:41 05/21/18 09:51 Zofran Injection IVPUSH 4 mg Q6H PRN Administration NAUSEA AND/OR VOMITING Oxycodone HCl 5 mg 05/21/18 14:56 Roxicodone - PO Q6H PRN pain 6-10 Promethazine HCl 12.5 mg 05/21/18 00:51 Phenergan Injection - IVPUSH Q6H PRN NAUSEA ASSESSMENT/PLAN: 1) Sepsis 2/2 UTI 2/2 to RUJ partially obstructing nephrolithiasis --s/p Cystoscopy and stent placement day 1 --Rocephin 1gm to continue --Pain control --Changing Morphine to oxycodone 5mg PO q6h Pain 6-10 --Urine culture pending --Strain urine for passed stone --Dr. Perera on board --Zofran and Phenergan on board 2) Vaginal bleeding --Dr. Gomes on board --possibly prolonged menses --5mm thickened endometrial lining and cystic structure in cervix --f/u with [employer] Application Support Specialist on discharge FEN: Fluids: NS @150cc/hr Electrolyte abnormalities: None Nutrition: PPX: DVT - Heparin SQ Dispo: continue monitoring Case discussed with Dr. Shania Blackburn, DO - IM PGY-1 Visit type - Emergency Visit Emergency Visit: No - New Patient This patient is new to me today: Yes Date on this admission: 05/21/18 - Critical Care Critical Care patient: No
[2018-05-21] MEDS ORDERED: PT OWN MED DRAWER 7, Y5N ONE (21:17)
[2018-05-21] MEDS: oxyCODONE HCL 5 MG TABLET PO PRN (21:59)
[2018-05-22] MEDS: oxyCODONE HCL 5 MG TABLET PO PRN (04:30)
[2018-05-22] MEDS: SODIUM CHLORIDE 1,000 ML IV SCH ×2 (04:51→08:07)
[2018-05-22] MEDS: HEPARIN NA (PORCINE) 5,000 UNITS/ML 1ML VIAL SQ SCH ×2 (06:49→14:55)
[2018-05-22 08:07] LABS: HEMATOCRIT 32.2 % (32.4-45.2); HEMOGLOBIN 10.6 GM/dL (10.7-15.3); MCH 27.8 pg (25.7-33.7); MEAN CELL VOLUME 84.2 fl (80-96); MEAN PLT VOLUME 11.1 fl (7.5-11.1); PLATELET COUNT 201 K/MM3 (134-434); RBC 3.83 M/mm3 (3.60-5.2); RDW 15.7 % (11.6-15.6); WHITE BLOOD COUNT 13.1 K/mm3 (4.0-10.0)
--- NOTE | 2018-05-22 08:18 | PN ---
Progress Note (short form) - Note Progress Note: Anesthesia Post op Pt seen and examined S:Alert and awake O: Vital Signs Temperature 98.2 F 05/22/18 06:00 Pulse Rate 73 05/22/18 06:00 Respiratory Rate 20 05/22/18 06:00 Blood Pressure 134/81 05/22/18 06:00 O2 Sat by Pulse Oximetry (%) 98 05/21/18 21:00 CBC, BMP 05/22/18 07:00 05/21/18 06:30 A/P Current Active Problems Fever (Acute) Irregular periods (Acute) Kidney stone on right side (Acute) Menorrhagia (Acute) Urinary tract infection (Acute) s/pcysto,stent Doing well post op Continue current care Rich Herrera MD
--- NOTE | 2018-05-22 09:25 | PN ---
Progress Note (short form) - Note Progress Note: s/p stent placement c/o stent pain afebrile WBC improving culture pending cont abx will obtain KUB to confirm stent placement
[2018-05-22] MEDS ORDERED: oxyCODONE HCL 5 MG TABLET PO PRN (10:06)
[2018-05-22] MEDS ORDERED: PT OWN MED DRAWER 7, Y5N ONE (11:05)
[2018-05-22] MEDS ORDERED: DEXTROSE 5%-WATER - 50 ML IVPB ONE (11:06)
[2018-05-22] MEDS ORDERED: cefTRIAXone SODIUM 1 GM VIAL ONE (11:06)
[2018-05-22] MEDS: NICOTINE 14 MG/24 HOURS TOPICAL PATCH TD SCH (11:27)
[2018-05-22] MEDS: CEFTRIAXONE 1 GM in DEXTROSE 5%-WATER - 50 ML IVPB SCH (11:27)
--- NOTE | 2018-05-22 13:30 | PN ---
Teaching Attending Note Name of Resident: Rich Blackburn ATTENDING PHYSICIAN STATEMENT I saw and evaluated the patient. I reviewed the resident's note and discussed the case with the resident. I agree with the resident's findings and plan as documented. SUBJECTIVE: No fever or chills. RLQ abd pain and burning with urination mainly. no SOB . minimal hematuria OBJECTIVE: NAD. MMM CV: RRR Lungs: CTAB Abd: obese, soft, ND, TTP in RLQ , no rebound tenderness or guarding Ext : no edema ASSESSMENT AND PLAN: 43 y/o lady with h/o nephrolithiasis who presented with abd pain and was found ot have sepsis due to UTI in setting of R UPJ obstrucitng stone 1- Sepsis 2/2 UTI in setting of R UPJ obstructing stone. s/p cysto and stent placement - Urine cx with no growth but she was on Abx prior to admission . will cont Po abx - stain all urine - oxycodone for pain - KUB pending 2- Vaginal bleeding: probably prolonged menses, emdometrial thickness 5 mm. US with a cystic structure in cervix thought to be blood clot by [employer] T[employer]ER. - HB slightly dropped but on IVF . - f/u with [employer]ANGE BACK TENDER at dc will probably dc home today on PO abx to f/u with uro and [employer] T[employer]
[2018-05-22 15:33] VITALS: BP 108/65; PULSE 78; TEMP 98.5
--- NOTE | 2018-05-22 16:15 | DS ---
Physical Exam: SUBJECTIVE: Patient seen and examined OBJECTIVE: Vital Signs Period Temp Pulse Resp BP Sys/Rubi Pulse Ox Last 24 Hr 98.1 F-98.5 F 73-84 18-20 108-134/59-81 98-98 PHYSICAL EXAM GENERAL: The patient is awake, alert, and fully oriented, in no acute distress. HEAD: Normal with no signs of trauma. EYES: PERRL, extraocular movements intact, sclera anicteric, conjunctiva clear. ENT: Ears normal, nares patent, oropharynx clear without exudates, moist mucous membranes. NECK: Trachea midline, full range of motion, supple. LUNGS: Breath sounds equal, clear to auscultation bilaterally, no wheezes, no crackles, no accessory muscle use. HEART: Regular rate and rhythm, S1, S2 without murmur, rub or gallop. ABDOMEN: Soft, nontender, nondistended, normoactive bowel sounds, no guarding, no rebound, no hepatosplenomegaly, no masses. EXTREMITIES: 2+ pulses, warm, well-perfused, no edema. NEUROLOGICAL: Cranial nerves II through XII grossly intact. Normal speech, gait not observed. PSYCH: Normal mood, normal affect. SKIN: Warm, dry, normal turgor, no rashes or lesions noted. LABS Laboratory Results - last 24 hr 05/22/18 07:00 WBC 13.1 H RBC 3.83 Hgb 10.6 L Hct 32.2 L MCV 84.2 MCH 27.8 MCHC 33.0 RDW 15.7 H Plt Count 201 MPV 11.1 HOSPITAL COURSE: Date of Admission:05/20/18 Date of Discharge: 05/22/18 Discharge Summary Reason For Visit: UTI/CALCULUS OF RIGHT KIDNEY Current Active Problems Kidney stone on right side (Acute) Menorrhagia (Acute) Sepsis (Acute) Urinary tract infection (Acute) Vaginal bleeding, abnormal (Acute) Condition: Improved - Instructions Diet, Activity, Other Instructions: You were hospitalized due to a kidney stone and urinary infection [ pyelonephritis]. You received a cystoscopy and stent placed to help the flow of your urine from your kidney. MEDICATION CHANGES: You will need to take Vantin 200mg TWICE DAILY for another 11 days because of your infection --This has been sent to your pharmacy, [facility] For pain you will be given Oxycodone 5mg every 8 hours NEEDED --While you take your oxycodone, please refrain from driving or operating heavy machinery. Otherwise you can continue any medications as you have been prior to your hospital stay Please drink plenty of water to help pass your stone 2-3L of liquid Please make sure to check your urine after using the bathroom if you pass the stone. FOLLOW-UPs: You will need to follow-up with Dr. Perera in 1 week In addition you should also see Dr. Estrella within 1-2 weeks about what has happened during your hospital stay If you begin to bleed more please see Dr. Clark. If you soak 2 complete pads in 2 hours with blood, please return to the ER as this can be very serious. Referrals: Rich Perera MD [Staff Physician] - 1 Week Estefania Arriaga MD [Staff Physician] - 1 Week Chuy Estrella MD [Non Staff, Medical] - 1 Week Disposition: HOME - Home Medications Comprehensive Discharge Medication List: Ambulatory Orders Albuterol Sulfate Inhaler - [Ventolin HFA Inhaler -] 1 puff IH Q4H PRN 05/21/18 Ipratropium 0.02% Nebulizer [Atrovent 0.02% Nebulizer -] 1 neb NEB Q6H PRN 05/21 Cefpodoxime Proxetil [Vantin -] 200 mg PO Q12H #22 tablet 05/22/18 Miscellaneous Medical Supply [Outpatient Order] 1 each ASDIR #1 misc Oxycodone HCl/Acetaminophen [Percocet 5-325 mg Tablet] 1 tab PO Q8H PRN #9 tablet MDD 15 05/22/18
== END 2018-05-22 18:31 | disposition home or self-care (01) | DRG 872 ==
LOC: JER 16:21 → JERBED 22:19 → UNDOADMIN 23:18 → J5S 05-21 01:57
PROVIDERS: ADMIT Internal Medicine; ATTEND Internal Medicine
PROC: BT1DZZZ Fluoroscopy of Right Kidney, Ureter and Bladder (ICD-10-PCS; 2018-05-21)
PROC: 0T768DZ Dilation of Right Ureter with Intraluminal Device, Via Natural or Artificial Opening Endoscopic (ICD-10-PCS; principal; 2018-05-21 00:05)
DX: A41.9 Sepsis, unspecified organism (principal); N39.0 Urinary tract infection, site not specified; Z68.41 Body mass index [BMI] 40.0-44.9, adult; N20.0 Calculus of kidney; N92.6 Irregular menstruation, unspecified; N92.0 Excessive and frequent menstruation with regular cycle; R00.0 Tachycardia, unspecified; D72.829 Elevated white blood cell count, unspecified; F17.210 Nicotine dependence, cigarettes, uncomplicated; N93.9 Abnormal uterine and vaginal bleeding, unspecified; E66.9 Obesity, unspecified; R10.9 Unspecified abdominal pain
CPT/HCPCS: 36415; 71045-TC-FY; 74018-TC-FY; 74176; 76000-TC-FY; 76830-TC; 80053; 81003; 81015; 83605; 84703; 85025; 85027; 85610; 87040; 87086; 94760; 99284-25; J0131; J1644; J7030; Q0162

== ENCOUNTER 2018-06-14 17:27 | Inpatient (IN) | payer BC ==
[2018-06-14] MEDS ORDERED: ACETAMINOPHEN 325 MG TABLET (FP) PO ONE (18:40)
[2018-06-14] MEDS ORDERED: KETOROLAC TROMETHAMINE 30 MG/1 ML VIAL IVPUSH ONE (18:45)
--- NOTE | 2018-06-14 18:50 | PDOC ---
Attending Attestation - HPI HPI: The patient is a 43 F, with PMHx significant for prior kidney stones. Patient comes in today for increased RLQ pain, which she states feels like her prior kidney stones. She also notes associated lower back pain thats worse with movement and states that it's hard to get comfortable. She was recently seen in the ER earlier this month for similar complaints and imaging confirms positive kidney stone. She also notes associated nausea, vomiting, and chills. She reports difficulty ambulating, secondary to pain. Urologist: Dr. Perera Surgical Hx: Appendectomy <Aura Peterson - Last Filed: 06/14/18 19:02> - Resident Resident Name: El Ramos - ED Attending Attestation I have performed the following: I have examined & evaluated the patient, The case was reviewed & discussed with the resident, I agree w/resident's findings & plan, Exceptions are as noted - HPI HPI: In addition to the above, patient states that she had a procedure to dissolve the stone a few days ago, followed by replacement of the stent. She has been on antibiotics since yesterday for suspected UTI, started while she was in Dr. Perera's office. - Physicial Exam PE: GENERAL: Awake, alert, and fully oriented. Appears uncomfortable. HEAD: No signs of trauma EYES: PERRLA, EOMI, sclera anicteric, conjunctiva clear ENT: Auricles normal inspection, hearing grossly normal, nares patent, oropharynx clear without exudates. Moist mucosa NECK: Normal ROM, supple, no lymphadenopathy, JVD, or masses LUNGS: Breath sounds equal, clear to auscultation bilaterally. No wheezes, and no crackles HEART: Regular rate and rhythm, normal S1 and S2, no murmurs, rubs or gallops ABDOMEN: Soft, nontender, normoactive bowel sounds. No guarding, no rebound. No masses. +R CVAT. EXTREMITIES: Normal range of motion, no edema. No clubbing or cyanosis. No cords, erythema, or tenderness NEUROLOGICAL: Cranial nerves II through XII grossly intact. Normal speech, normal gait SKIN: Warm, Dry, normal turgor, no rashes or lesions noted. - Medical Decision Making Pt with history of stones s/p recent procedure and replacement of stent. Now presenting with pain, hematuria. DDx includes occlusion of the stent, infection , new stone formation. <Laura Miller - Last Filed: 06/14/18 19:53>
[2018-06-14 19:15] LABS: URINE APPEARANCE CLOUDY; URINE BILIRUBIN NEGATIVE (<2.0 mg/dL); URINE COLOR DKYELLOW; URINE GLUCOSE (UA) 1+ (NEGATIVE); URINE KETONE NEGATIVE (NEGATIVE); URINE NITRITE NEGATIVE (NEGATIVE); URINE UROBILINOGEN NEGATIVE mg/dL (0.2-1.0)
[2018-06-14 19:22] LABS: URINE LEUK ESTERASE 3+ (NEGATIVE); URINE PROTEIN 2+ (NEGATIVE)
[2018-06-14 19:23] LABS: EPI CELLS FEW /HPF (FEW); URINE MUCUS RARE
[2018-06-14 19:36] LABS: HEMATOCRIT 38.6 % (32.4-45.2); HEMOGLOBIN 12.6 GM/dL (10.7-15.3); MCH 27.5 pg (25.7-33.7); MCHC 32.8 g/dl (32.0-36.0); MEAN CELL VOLUME 83.8 fl (80-96); MEAN PLT VOLUME 11.2 fl (7.5-11.1); PLATELET COUNT 260 K/MM3 (134-434); RDW 15.6 % (11.6-15.6); WHITE BLOOD COUNT 10.5 K/mm3 (4.0-10.0)
[2018-06-14] MEDS ORDERED: CEFTRIAXONE 1,000 MG in DEXTROSE 5%-WATER - 50 ML IVPB ONE (19:44)
[2018-06-14 20:05] LABS: ALBUMIN 3.5 g/dl (3.4-5.0); ANION GAP 6 (8-16); BLOOD UREA NITROGEN 9 mg/dL (7-18); CALCIUM 8.9 mg/dL (8.5-10.1); CHLORIDE 106 mmol/L (98-107); CO2 28 mmol/L (21-32); CREATININE 0.8 mg/dL (0.55-1.02); GLUCOSE,RANDOM 114 mg/dL (74-106); POTASSIUM 4.9 mmol/L (3.5-5.1); SGOT/AST 17 U/L (15-37); SGPT/ALT 26 U/L (12-78); SODIUM 140 mmol/L (136-145)
[2018-06-14 20:08] LABS: ALK PHOS 83 U/L (45-117); BILIRUBIN,TOTAL 0.3 mg/dL (0.2-1.0); TOT PROT 6.9 g/dl (6.4-8.2)
--- NOTE | 2018-06-14 20:18 | PDOC ---
History of Present Illness - General Chief Complaint: Back Pain Stated Complaint: BACK PAIN Time Seen by Provider: 06/14/18 18:12 History Source: Patient Exam Limitations: No Limitations - History of Present Illness Initial Comments: 06/14/18 19:51 Patient is a 43F with history of recent kidney stone s/p stenting here today complaining of back pain and dysuria. Patient states that she had a stent placed by Dr Gould several weeks ago with subsequent breaking of stone. Patient states that she's had an additional ER visit on 05/26 where she was evaluated and found to have blood in the urine. Patient was evaluated and seen by her urologist again, and has been on two different antibiotics as an outpatient. Patient endorses subjective chills, denies fevers, chills. Patient denies chest pain and shortness of breath. Her back pain is located on her lower right side and is worsened with walking. Past History - Past Medical History Allergies/Adverse Reactions: Allergies Allergy/AdvReac Type Severity Reaction Status Date / Time No Known Allergies Allergy Verified 06/14/18 17:45 Home Medications: Ambulatory Orders Ibuprofen [Motrin -] 600 mg PO TID #21 tablet 05/26/18 Nitrofurantoin Monohyd/M-Cryst [Macrobid -] 100 mg PO BID 05/26/18 Asthma: Yes COPD: No Kidney Stones: Yes - Surgical History Abdominal Surgery: Yes Appendectomy: Yes - Immunization History Immunization Up to Date: Yes - Suicide/Smoking/Psychosocial Hx Smoking Status: Yes Smoking History: Current every day smoker Have you smoked in the past 12 months: Yes Number of Cigarettes Smoked Daily: 10 Information on smoking cessation initiated: No 'Breaking Loose' booklet given: 11/02/17 Hx Alcohol Use: No Drug/Substance Use Hx: No Substance Use Type: None Review of Systems - Review of Systems Comments:: 06/14/18 20:18 GENERAL/CONSTITUTIONAL: No fever, +chills. No weakness. HEAD, EYES, EARS, NOSE AND THROAT: No change in vision. No sore throat. CARDIOVASCULAR: No chest pain or shortness of breath RESPIRATORY: No cough, wheezing, or hemoptysis. GASTROINTESTINAL: No nausea, vomiting, diarrhea or constipation. GENITOURINARY: + dysuria, frequency MUSCULOSKELETAL: No joint or muscle swelling or pain. +back pain. SKIN: No rash NEUROLOGIC: No headache, vertigo, loss of consciousness, or change in strength/ sensation. ENDOCRINE: No increased thirst. No abnormal weight change HEMATOLOGIC/LYMPHATIC: No anemia, easy bleeding, or history of blood clots. ALLERGIC/IMMUNOLOGIC: No hives or skin allergy. *Physical Exam - Vital Signs Last Vital Signs Temp Pulse Resp BP Pulse Ox 98.4 F 88 18 116/66 100 06/14/18 17:42 06/14/18 17:42 06/14/18 17:42 06/14/18 17:42 06/14/18 17:42 - Physical Exam Comments: 06/14/18 20:22 GENERAL: Awake, alert, and fully oriented, in no acute distress HEAD: No signs of trauma, normocephalic, atraumatic EYES: PERRLA, EOMI, sclera anicteric, conjunctiva clear ENT: Auricles normal inspection, hearing grossly normal, nares patent, oropharynx clear without exudates. Moist mucosa NECK: Normal ROM, supple, no lymphadenopathy, JVD, or masses LUNGS: No distress, speaks full sentences, clear to auscultation bilaterally HEART: Regular rate and rhythm, normal S1 and S2, no murmurs, rubs or gallops, peripheral pulses normal and equal bilaterally. ABDOMEN: +RLQ and suprapubic pain, soft EXTREMITIES: Normal inspection, Normal range of motion, no edema. No clubbing or cyanosis. BACK: No CVA tenderness, +right lower back pain, +right leg raise test NEUROLOGICAL: Cranial nerves II through XII grossly intact. Normal speech, normal gait, no focal sensorimotor deficits SKIN: Warm, Dry, normal turgor, no rashes or lesions noted. ED Treatment Course - LABORATORY CBC & Chemistry Diagram: 06/14/18 19:25 06/14/18 19:25 - ADDITIONAL ORDERS Additional order review: Laboratory Results 06/14/18 06/14/18 18:46 18:39 Urine Color Dkyellow Urine Appearance Cloudy Urine pH 6.0 D Ur Specific [place] 1.019 Urine Protein 2+ H Urine Glucose (UA) 1+ H Urine Ketones Negative Urine Blood 3+ H Urine Nitrite Negative Urine Bilirubin Negative Urine Urobilinogen Negative Ur Leukocyte Esterase 3+ H Urine WBC (Auto) 1205 Urine RBC (Auto) 2246 Ur Epithelial Cells Few Urine Mucus Rare Urine HCG, Qual Negative 06/14/18 19:25 RBC 4.60 MCV 83.8 MCHC 32.8 RDW 15.6 MPV 11.2 H - RADIOLOGY Radiology Studies Ordered: Category Date Time Status KIDNEY / RENAL US [US] Stat Ultrasound 06/14/18 18:47 Ordered - Medications Given in the ED: ED Medications Discontinued Medications Generic Name Dose Route Start Last Admin Trade Name Mark PRN Reason Stop Dose Admin Acetaminophen 650 mg 06/14/18 18:40 06/14/18 19:31 Tylenol - PO 06/14/18 18:41 Not Given ONCE ONE Oxycodone/Acetaminophen 1 combo 06/14/18 18:42 06/14/18 19:18 Percocet 5/325 - PO 06/14/18 18:43 1 combo ONCE ONE Administration Medical Decision Making - Medical Decision Making 06/14/18 20:23 Patient is 43F with history of appendectomy, nephrolithiasis s/p stenting here today with RLQ pain, dysurian and back pain. DDx includes, but is not limited to : complicated UTI, nephrolithiasis, blocked stent. Will workup with UA/UC, cbc, cmp, and ultrasound. 06/14/18 20:33 Laboratory Tests 06/14/18 06/14/18 06/14/18 18:39 19:25 19:25 WBC 10.5 H Hgb 12.6 Plt Count 260 BUN 9 Creatinine 0.8 Urine Blood 3+ H Ur Leukocyte Esterase 3+ H Urine WBC (Auto) 1205 Urine RBC (Auto) 2246 CBC normal. CMP reassuring. UA positive for both blood and WBC. Urine culture already sent. Will cover with rocephin. Pending ultrasound, will page urology when complete. 06/14/18 21:[address] requested by Dr Perera. Ordered. Will admit. *DC/Admit/Observation/Transfer Diagnosis at time of Disposition: UTI (urinary tract infection) Qualifiers: Urinary tract infection type: acute pyelonephritis Qualified Code(s): N10 - Acute pyelonephritis - Discharge Dispostion Condition at time of disposition: Stable Decision to Admit order: Yes - Referrals Referrals: Chuy Estrella MD [Primary Care Provider] - - Patient Instructions - Post Discharge Activity
[2018-06-14] MEDS ORDERED: CEFTRIAXONE 1 GM/50 ML BAG ONE (21:04)
--- NOTE | 2018-06-14 21:52 | HP ---
CHIEF COMPLAINT: PCP: HISTORY OF PRESENT ILLNESS: The pt is a 43 yo F, with PMHx signif for asthma, prior kidney stones presenting with R lower back pain and burning on micturition. Pt said the pain was colicky and intermittent 10/10, not relieved with tramadol, with associated chills. Pt went to see her urologist for follow up after lithotripsy and stent placement, on Saturday when she completed the prior antibiotics. Yesterday, because of persistent pain, and hematuria, she was prescribed new antibiotics. Pt states that the persistent RLQ pain, is similar to presentation of her prior kidney stones several years ago that resolved on its own. She has been on antibiotics (likely bactrim) since yesterday for suspected UTI, started while she was in Dr. Perera's office. Per ED d/w Dr Perera, pt is admitted for failed outpatient treatment ER course was notable for: (1) WBC-10.5, UA- LE 3+, 2+ Pr, 1+ glu, 3+ bld, WBC-1205, RBC-2246, few epith, rare mucus, hcg--ve (2) Kidney US-0.4 cm stone, CT ap- pending (3)percocet, fluids, ceftriaxone Recent Travel: PAST MEDICAL HISTORY: asthma, kidney stones-2010 PAST SURGICAL HISTORY: C/section x2-/ yrs ago appendectomy 2004 Social History: Smokin/2 pack/day [id number] Alcohol:Denies Drugs: Denies Family History: Adopted- unknown Allergies No Known Allergies Allergy (Verified 06/14/18 17:45) HOME MEDICATIONS: Home Medications Medication Instructions Recorded Ibuprofen [Motrin -] 600 mg PO TID #21 tablet 05/26/18 Nitrofurantoin Monohyd/M-Cryst 100 mg PO BID 05/26/18 [Macrobid -] REVIEW OF SYSTEMS CONSTITUTIONAL: Absent: fever, chills, diaphoresis, generalized weakness, malaise, loss of appetite, weight change HEENT: Absent: rhinorrhea, nasal congestion, throat pain, throat swelling, difficulty swallowing, mouth swelling, ear pain, eye pain, visual changes CARDIOVASCULAR: Absent: chest pain, syncope, palpitations, irregular heart rate, lightheadedness , peripheral edema RESPIRATORY: Absent: cough, shortness of breath, dyspnea with exertion, orthopnea, wheezing, stridor, hemoptysis GASTROINTESTINAL: Absent: abdominal pain, abdominal distension, nausea, vomiting, diarrhea, constipation, melena, hematochezia GENITOURINARY: Absent: dysuria, frequency, urgency, hesitancy, hematuria, flank pain, genital pain MUSCULOSKELETAL: Absent: myalgia, arthralgia, joint swelling, back pain, neck pain SKIN: Absent: rash, itching, pallor HEMATOLOGIC/IMMUNOLOGIC: Absent: easy bleeding, easy bruising, lymphadenopathy, frequent infections ENDOCRINE: Absent: unexplained weight gain, unexplained weight loss, heat intolerance, cold intolerance NEUROLOGIC: Absent: headache, focal weakness or paresthesias, dizziness, unsteady gait, seizure, mental status changes, bladder or bowel incontinence PSYCHIATRIC: Absent: anxiety, depression, suicidal or homicidal ideation, hallucinations. PHYSICAL EXAMINATION Vital Signs - 24 hr 06/14/18 17:42 Temperature 98.4 F Pulse Rate 88 Respiratory 18 Rate Blood Pressure 116/66 O2 Sat by Pulse 100 Oximetry (%) GENERAL: Awake, alert, and fully oriented, in no acute painful distress. EYES: Pupils equal, round and reactive to light, extraocular movements intact, EARS, NOSE, THROAT: Moist mucous membranes. LUNGS: Breath sounds equal, clear to auscultation bilaterally. HEART: Regular rate and rhythm, normal S1 and S2 without murmur ABDOMEN: Soft, mild suprapubic discomfort, not distended, normoactive bowel sounds, MUSCULOSKELETAL: R CVA tenderness. LOWER EXTREMITIES: 2+ pulses, warm, trace bilateral pitting edema. NEUROLOGICAL: AAOx3. Normal gait, normal speech Laboratory Results - last 24 hr 06/14/18 06/14/18 06/14/18 18:39 18:46 19:25 WBC 10.5 H RBC 4.60 Hgb 12.6 Hct 38.6 MCV 83.8 MCH 27.5 MCHC 32.8 RDW 15.6 Plt Count 260 MPV 11.2 H Sodium Potassium Chloride Carbon Dioxide Anion Gap BUN Creatinine Creat Clearance w eGFR Random Glucose Calcium Total Bilirubin AST ALT Alkaline Phosphatase Total Protein Albumin Urine Color Dkyellow Urine Appearance Cloudy Urine pH 6.0 D Ur Specific [place] 1.019 Urine Protein 2+ H Urine Glucose (UA) 1+ H Urine Ketones Negative Urine Blood 3+ H Urine Nitrite Negative Urine Bilirubin Negative Urine Urobilinogen Negative Ur Leukocyte Esterase 3+ H Urine WBC (Auto) 1205 Urine RBC (Auto) 2246 Ur Epithelial Cells Few Urine Mucus Rare Urine HCG, Qual Negative 06/14/18 19:25 WBC RBC Hgb Hct MCV MCH MCHC RDW Plt Count MPV Sodium 140 Potassium 4.9 Chloride 106 Carbon Dioxide 28 Anion Gap 6 L BUN 9 Creatinine 0.8 Creat Clearance w eGFR > 60 Random Glucose 114 H Calcium 8.9 Total Bilirubin 0.3 AST 17 ALT 26 Alkaline Phosphatase 83 Total Protein 6.9 Albumin 3.5 Urine Color Urine Appearance Urine pH Ur Specific [place] Urine Protein Urine Glucose (UA) Urine Ketones Urine Blood Urine Nitrite Urine Bilirubin Urine Urobilinogen Ur Leukocyte Esterase Urine WBC (Auto) Urine RBC (Auto) Ur Epithelial Cells Urine Mucus Urine HCG, Qual Ambulatory Orders Ibuprofen [Motrin -] 600 mg PO TID #21 tablet 05/26/18 Nitrofurantoin Monohyd/M-Cryst [Macrobid -] 100 mg PO BID 05/26/18 ASSESSMENT/PLAN: The pt is a 43 yo F, with PMHx signif for current smoker, asthma, prior kidney stones presenting with R lower back pain and burning on micturition despite outpatient antibiotics, with positive UA, following recent urologic procedures for renal stones Complicated R pyelonephritis Rflank pain/tenderness, positive UA, recent urologic procedures Failed out patient mx Ceftriaxone 1g daily IV hydration Pain control Urology consult- Dr Perera Pending urine cx R renal stones Recent lithotrypsy with stent placement and replacement Would benefit from stone analysis as an outpt Urinary strain Urology consult Asthma Not in acute exacerbation Monitor Active smoker Smoking cessation counseling Pt is open to nicotine patch Obesity Diet and exercise counseling FEN Cont NS @100/hr Monitor lytes and replete as needed Regular diet- if not having a procedure PPx Hold chemical prophylaxis at this time SCDs, early ambulation Dispo In pt Med surg Visit type - Emergency Visit Emergency Visit: Yes ED Registration Date: 06/14/18 Care time: The patient presented to the Emergency Department on the above date and was hospitalized for further evaluation of their emergent condition. - New Patient This patient is new to me today: Yes Date on this admission: 06/14/18 - Critical Care Critical Care patient: No Hospitalist Screening - Colonoscopy Questionnaire Colonoscopy Questionnaire: Colonoscopy Questionnaire - Patient: 50 - 75 years old and never had a screening colonoscopy: No History of colon or rectal polyps, or CA: Unknown History of IBD, Crohn's disease or UC: Unknown History of abdominal radiation therapy as a child: Unknown - Relative: 1 with colon or rectal CA, or polyps at age 60 or younger: Unknown Colon or rectal CA diagnosed at age 45 or younger: Unknown Multiple relatives with colon or rectal CA: Unknown - Outcome: Screening Result: Negative Screen
--- NOTE | 2018-06-14 22:59 | PN ---
Teaching Attending Note Name of Resident: Sintia Russ ATTENDING PHYSICIAN STATEMENT I saw and evaluated the patient. I reviewed the resident's note and discussed the case with the resident. I agree with the resident's findings and plan as documented. SUBJECTIVE: Patient is a 43 year old woman with history of recent kidney stone s/p stenting here today complaining of back pain and dysuria. Patient states that she had a stent placed by Dr Gould several weeks ago with subsequent breaking of stone. Patient states that she's had an additional ER visit on 05/26 where she was evaluated and found to have blood in the urine. Patient was evaluated and seen by her urologist again, and has been on two different antibiotics as an outpatient. Patient endorses subjective chills, denies fevers, chills. Patient denies chest pain and shortness of breath. Her back pain is located on her lower right side and is worsened with walking. OBJECTIVE: Alert and in no respiratory distress Vital Signs Period Temp Pulse Resp BP Sys/Rubi Pulse Ox Last 24 Hr 98.4 F 88 18 116/66 100 HEENT: No Jaundice, eye redness or discharge, PERRLA, EOMI. Normocephalic, atraumatic. External ears are normal and hearing is grossly intact. No nasal discharge. Neck: Supple, nontender. No palpable adenopathy or thyromegaly. No JVD Chest: Good effort. Clear to auscultation and percussion. Heart: Regular. No S3, rub or murmur Abdomen: Not distended, soft, Right CVA tenderness and no HSM. No rebound or guarding. Normoactive bowel sounds. Ext: Peripheral pulses intact. No leg edema. Skin: Warm and dry. No petechiae, rash or ecchymosis. Neuro: Alert. Oriented x3. CN 2-12 grossly intact. Sensation grossly intact in all four extremities and DTR are symmetric. Home Medications Medication Instructions Recorded Ibuprofen [Motrin -] 600 mg PO TID #21 tablet 05/26/18 Nitrofurantoin Monohyd/M-Cryst 100 mg PO BID 05/26/18 [Macrobid -] Abnormal Lab Results 06/14/18 06/14/18 06/14/18 18:39 19:25 19:25 WBC 10.5 H MPV 11.2 H Anion Gap 6 L Random Glucose 114 H Urine Protein 2+ H Urine Glucose (UA) 1+ H Urine Blood 3+ H Ur Leukocyte Esterase 3+ H ASSESSMENT AND PLAN: 1. Pyelonephritis and Kidney Stone Disease - US in the ER does not show any stone and CT scan is pending. Had recent ureteral stenting and lithotripsy. Was on two different oral antibiotics recently (?Bactrim and Macrobid). Will treat with IV Rocephin 1 gm q 24 hours pending culture report. Give IV NS at 100 ml/ hour. Refer to nephrology upon discharge to search for risk factor for stone formation. First episode of kidney stone was in 2010 and she has never had a comprehensive workup. Check HbA1c in view of hyperglycemia. 2. Tobacco Use We will provide patient all the necessary assistance to facilitate smoking cessation and prescribe Nicotine patch. 3. Obesity - Will provide patient all the necessary assistance , counseling and positive reinforcement to facilitate weight loss. Consult deputy director of nursing. 4. DVT prophylaxis - Heparin 5000u sq tid. 5. Advance directives - Full code
[2018-06-15] MEDS ORDERED: oxyCODONE/APAP 1 EACH - MUST ORDER COMBO PRODUCT NR PRN (02:53)
[2018-06-15] MEDS ORDERED: ACETAMINOPHEN 325 MG TABLET (FP) PO PRN ×2 (03:21→16:16)
[2018-06-15] MEDS ORDERED: oxyCODONE HCL 5 MG TABLET PO PRN (03:21)
[2018-06-15] MEDS: SODIUM CHLORIDE 1,000 ML IV SCH ×3 (03:44→20:44)
[2018-06-15 03:55] VITALS: BMI 44.3
[2018-06-15 08:34] LABS: BASO % 1.3 % (0-2.0); HEMATOCRIT 35.8 % (32.4-45.2); HEMOGLOBIN 11.8 GM/dL (10.7-15.3); LYMPH % 31.7 % (8-40); MCH 27.8 pg (25.7-33.7); MCHC 33.1 g/dl (32.0-36.0); MEAN CELL VOLUME 84.1 fl (80-96); MEAN PLT VOLUME 11.1 fl (7.5-11.1); MONO % 13.3 % (3.8-10.2); NEUT % 48.7 % (42.8-82.8); PLATELET COUNT 220 K/MM3 (134-434); RBC 4.26 M/mm3 (3.60-5.2); RDW 15.5 % (11.6-15.6)
[2018-06-15 08:40] LABS: INR 1.05 (0.82-1.09); PROTHROMBIN TIME (PATIENT) 11.9 SEC (9.7-13.0)
[2018-06-15] MEDS ORDERED: PNEUMOC 13-VAL CONJ-DIP CRM/PF 0.5 ML DISP.SYRIN IM ONE (09:00)
[2018-06-15] MEDS ORDERED: cefTRIAXone SODIUM 1 GM VIAL ONE (09:02)
[2018-06-15] MEDS ORDERED: DEXTROSE 5%-WATER - 50 ML IVPB ONE (09:02)
[2018-06-15] MEDS: CEFTRIAXONE 1 GM in DEXTROSE 5%-WATER - 50 ML IVPB SCH (09:04)
[2018-06-15 09:05] LABS: CHLORIDE 105 mmol/L (98-107); POTASSIUM 4.5 mmol/L (3.5-5.1); SODIUM 138 mmol/L (136-145)
[2018-06-15 09:15] LABS: ALBUMIN 3.2 g/dl (3.4-5.0); ALK PHOS 73 U/L (45-117); ANION GAP 5 (8-16); BILIRUBIN,TOTAL 0.4 mg/dL (0.2-1.0); BLOOD UREA NITROGEN 8 mg/dL (7-18); CALCIUM 8.9 mg/dL (8.5-10.1); CO2 28 mmol/L (21-32); CREATININE 0.7 mg/dL (0.55-1.02); GLUCOSE,RANDOM 92 mg/dL (74-106); MAGNESIUM 2.3 mg/dL (1.8-2.4); PHOSPHOROUS 3.7 mg/dL (2.5-4.9); SGOT/AST 13 U/L (15-37); SGPT/ALT 23 U/L (12-78); TOT PROT 6.3 g/dl (6.4-8.2)
[2018-06-15] MEDS: ONDANSETRON 4 MG/2 ML VIAL IVPUSH SCH ×3 (09:19→21:28)
--- NOTE | 2018-06-15 16:15 | PN ---
Physical Exam: SUBJECTIVE: Patient seen and examined, improved, still with right sided abdominal and right flank pain with dysuria, no fevers/chills, nasuea, vomitting , tolerating diet well. OBJECTIVE: Vital Signs Period Temp Pulse Resp BP Sys/Rubi Pulse Ox Last 24 Hr 97.6 F-98.4 F 70-88 16-18 112-120/56-71 95-100 GENERAL: sleeping, easily arousable, no acute distress Chest: CTAB, no rales or wheezing Abdomen:Soft, mild RMQ tenderness and right CVA tenderness, NT otherwise, obese Extremities: no edema Laboratory Results - last 24 hr 06/14/18 06/14/18 06/14/18 18:39 18:46 19:25 WBC 10.5 H RBC 4.60 Hgb 12.6 Hct 38.6 MCV 83.8 MCH 27.5 MCHC 32.8 RDW 15.6 Plt Count 260 MPV 11.2 H Absolute Neuts (auto) Neutrophils % Lymphocytes % Monocytes % Eosinophils % Basophils % Nucleated RBC % PT with INR INR Sodium Potassium Chloride Carbon Dioxide Anion Gap BUN Creatinine Creat Clearance w eGFR Random Glucose Calcium Phosphorus Magnesium Total Bilirubin AST ALT Alkaline Phosphatase Total Protein Albumin Urine Color Dkyellow Urine Appearance Cloudy Urine pH 6.0 D Ur Specific [place] 1.019 Urine Protein 2+ H Urine Glucose (UA) 1+ H Urine Ketones Negative Urine Blood 3+ H Urine Nitrite Negative Urine Bilirubin Negative Urine Urobilinogen Negative Ur Leukocyte Esterase 3+ H Urine WBC (Auto) 1205 Urine RBC (Auto) 2246 Ur Epithelial Cells Few Urine Mucus Rare Urine HCG, Qual Negative 06/14/18 06/15/18 06/15/18 19:25 07:12 07:12 WBC 8.0 RBC 4.26 Hgb 11.8 Hct 35.8 MCV 84.1 MCH 27.8 MCHC 33.1 RDW 15.5 Plt Count 220 MPV 11.1 Absolute Neuts (auto) 3.9 Neutrophils % 48.7 D Lymphocytes % 31.7 D Monocytes % 13.3 H Eosinophils % 5.0 H Basophils % 1.3 Nucleated RBC % 0 PT with INR 11.90 INR 1.05 Sodium 140 Potassium 4.9 Chloride 106 Carbon Dioxide 28 Anion Gap 6 L BUN 9 Creatinine 0.8 Creat Clearance w eGFR > 60 Random Glucose 114 H Calcium 8.9 Phosphorus Magnesium Total Bilirubin 0.3 AST 17 ALT 26 Alkaline Phosphatase 83 Total Protein 6.9 Albumin 3.5 Urine Color Urine Appearance Urine pH Ur Specific [place] Urine Protein Urine Glucose (UA) Urine Ketones Urine Blood Urine Nitrite Urine Bilirubin Urine Urobilinogen Ur Leukocyte Esterase Urine WBC (Auto) Urine RBC (Auto) Ur Epithelial Cells Urine Mucus Urine HCG, Qual 06/15/18 07:12 WBC RBC Hgb Hct MCV MCH MCHC RDW Plt Count MPV Absolute Neuts (auto) Neutrophils % Lymphocytes % Monocytes % Eosinophils % Basophils % Nucleated RBC % PT with INR INR Sodium 138 Potassium 4.5 Chloride 105 Carbon Dioxide 28 Anion Gap 5 L BUN 8 Creatinine 0.7 Creat Clearance w eGFR > 60 Random Glucose 92 Calcium 8.9 Phosphorus 3.7 Magnesium 2.3 Total Bilirubin 0.4 AST 13 L ALT 23 Alkaline Phosphatase 73 D Total Protein 6.3 L Albumin 3.2 L Urine Color Urine Appearance Urine pH Ur Specific [place] Urine Protein Urine Glucose (UA) Urine Ketones Urine Blood Urine Nitrite Urine Bilirubin Urine Urobilinogen Ur Leukocyte Esterase Urine WBC (Auto) Urine RBC (Auto) Ur Epithelial Cells Urine Mucus Urine HCG, Qual Active Medications Generic Name Dose Route Start Last Admin Trade Name Freq PRN Reason Stop Dose Admin Acetaminophen 325 mg 06/15/18 03:21 06/15/18 09:05 Tylenol - PO 06/18/18 03:20 325 mg Q4H PRN Administration PAIN LEVEL 6-10 Sodium Chloride 1,000 mls @ 125 mls/hr 06/15/18 03:00 06/15/18 03:44 Normal Saline - IV 125 mls/hr ASDIR ALEJANDRO Administration Ceftriaxone Sodium 1 gm/ 50 mls @ 200 mls/hr 06/15/18 10:00 06/15/18 09:04 Dextrose IVPB 200 mls/hr DAILY ALEJANDRO Administration Ondansetron HCl 4 mg 06/15/18 09:00 06/15/18 09:19 Zofran Injection IVPUSH 4 mg Q6H-IV ALEJANDRO Administration Oxycodone HCl 5 mg 06/15/18 03:21 06/15/18 09:04 Roxicodone - PO 5 mg Q4H PRN Administration PAIN LEVEL 6-10 CT A/P and Renal US right hydronephrosis and right ureteral stent ASSESSMENT/PLAN: 43 yof with PMhx of nephrolithiasis, s/p stent placement, ?recent lithotripsy, admitted with abdominal pain/urinary symptoms. -Acute lower uncomplicated UTI with likely right sided pyelonephritis -Right hydronephrosis -Nephrolithiasis s/p stent placement, ?Recent lithotripsy -Morbid obesity Plan: Ceftriaxone day 2, follow urine cultures and urology input. IVF, pain control, change to tylenol/toradol prn. DVTPPX lovenox Dispo pending clinical urine cultures, urology input and clinical course. Plan discussed with patient in detail, all questions answered. Visit type - Emergency Visit Emergency Visit: Yes ED Registration Date: 06/14/18 Care time: The patient presented to the Emergency Department on the above date and was hospitalized for further evaluation of their emergent condition. - New Patient This patient is new to me today: Yes Date on this admission: 06/15/18 - Critical Care Critical Care patient: No - Discharge Referral Referred to [facility] No
--- NOTE | 2018-06-15 16:36 | CON.GU ---
Consult - History of Present Illness History of Present Illness: 43 yo female s/p ureteroscopy/laser lithotripsy/stent placement for obstructing Rt proximal ureteral stone 10 days ago. Now with rt low back pain and RLQ pain, also some hematuria yesterday. CT with rt hydronephrosis, stent in place. - Past Medical History Pulmonary: Yes: Asthma Gastrointestinal: Yes: Other (no gi [roblems ) Hepatobiliary: Yes: Other (declines ) ...LMP: 04/29/18 ...: (not known) Infectious Disease: Yes: Other (h/o herpes igg pos ) Psych: Yes: Other (declins mental health disorders ) - Past Surgical History Past Surgical History: Yes: Appendectomy, (1995, 2000) - Alcohol/Substance Use Hx Alcohol Use: No History of Substance Use: reports: None - Smoking History Smoking history: Current every day smoker Have you smoked in the past 12 months: Yes Aproximately how many cigarettes per day: 10 Home Medications - Allergies Allergies/Adverse Reactions: Allergies Allergy/AdvReac Type Severity Reaction Status Date / Time No Known Allergies Allergy Verified 06/14/18 17:45 - Home Medications Home Medications: Ambulatory Orders Ibuprofen [Motrin -] 600 mg PO TID #21 tablet 05/26/18 Nitrofurantoin Monohyd/M-Cryst [Macrobid -] 100 mg PO BID 05/26/18 Review of Systems - Review of Systems Genitourinary: reports: Flank Pain Physical Exam- Vital Signs: Vital Signs Temperature 98.2 F 06/15/18 14:15 Pulse Rate 84 06/15/18 14:15 Respiratory Rate 18 06/15/18 14:15 Blood Pressure 112/59 06/15/18 14:15 O2 Sat by Pulse Oximetry (%) 95 06/15/18 09:00 Kidneys: Yes: Other (no CVAT) Labs: CBC, BMP 06/15/18 07:12 06/15/18 07:12 Imaging - Results Cat Scan: Image Reviewed Problem List - Problems (1) Urinary tract infection Assessment/Plan: unclear if pain secondary to uti or stent, await urine culture Code(s): N39.0 - URINARY TRACT INFECTION, SITE NOT SPECIFIED Qualifiers: Urinary tract infection type: acute pyelonephritis Qualified Code(s): N10 - Acute pyelonephritis
[2018-06-15] MEDS: KETOROLAC TROMETHAMINE 15 MG/ML VIAL IVPUSH PRN (16:53)
[2018-06-16] MEDS: KETOROLAC TROMETHAMINE 15 MG/ML VIAL IVPUSH PRN ×2 (00:31→08:02)
[2018-06-16] MEDS: ONDANSETRON 4 MG/2 ML VIAL IVPUSH SCH ×2 (02:25→10:30)
[2018-06-16] MEDS: SODIUM CHLORIDE 1,000 ML IV SCH ×2 (04:57)
[2018-06-16 07:15] LABS: EOS % 4.5 % (0-4.5); HEMATOCRIT 35.5 % (32.4-45.2); HEMOGLOBIN 11.8 GM/dL (10.7-15.3); LYMPH % 30.3 % (8-40); MCH 27.8 pg (25.7-33.7); MCHC 33.2 g/dl (32.0-36.0); MEAN CELL VOLUME 83.7 fl (80-96); MEAN PLT VOLUME 10.7 fl (7.5-11.1); MONO % 11.6 % (3.8-10.2); NEUT % 52.5 % (42.8-82.8); PLATELET COUNT 203 K/MM3 (134-434); RBC 4.24 M/mm3 (3.60-5.2); RDW 15.4 % (11.6-15.6); WHITE BLOOD COUNT 8.2 K/mm3 (4.0-10.0)
[2018-06-16 07:16] LABS: BASO % 1.1 % (0-2.0)
[2018-06-16 07:52] LABS: ANION GAP 5 (8-16); BLOOD UREA NITROGEN 10 mg/dL (7-18); CALCIUM 8.4 mg/dL (8.5-10.1); CHLORIDE 110 mmol/L (98-107); CO2 28 mmol/L (21-32); CREATININE 0.6 mg/dL (0.55-1.02); GLUCOSE,RANDOM 92 mg/dL (74-106); PHOSPHOROUS 2.9 mg/dL (2.5-4.9); POTASSIUM 4.8 mmol/L (3.5-5.1); SODIUM 143 mmol/L (136-145)
[2018-06-16] MEDS ORDERED: DEXTROSE 5%-WATER - 50 ML IVPB ONE (10:11)
[2018-06-16] MEDS ORDERED: cefTRIAXone SODIUM 1 GM VIAL ONE (10:11)
[2018-06-16] MEDS: CEFTRIAXONE 1 GM in DEXTROSE 5%-WATER - 50 ML IVPB SCH (10:30)
[2018-06-16 11:09] VITALS: BP 111/56; PULSE 92; TEMP 98.3
--- NOTE | 2018-06-16 13:08 | PN ---
Teaching Attending Note Name of Resident: Javad Odonnell ATTENDING PHYSICIAN STATEMENT I saw and evaluated the patient. I reviewed the resident's note and discussed the case with the resident. I agree with the resident's findings and plan as documented with exceptions below. SUBJECTIVE: Patient seen and examined, symptoms improved, tolerating diet, no new fevers/ chills. OBJECTIVE: Vital Signs Period Temp Pulse Resp BP Sys/Rubi Pulse Ox Last 24 Hr 97.8 F-98.5 F 71-92 18-20 100-129/56-78 Intake & Output 06/13/18 06/14/18 06/15/18 06/16/18 23:59 23:59 23:59 23:59 Intake Total 3105 1855 Balance 3105 1855 Weight 248 lb 250 lb 2 oz General: sitting in bed in no acute distress Abdomen:soft, mild RMQ tenderness, mild Right CVA tenderness, no voluntary or involuntary guarding or rigidity Active Medications Acetaminophen (Tylenol -) 650 mg PO Q6H PRN PRN Reason: PAIN LEVEL 1-5 Sodium Chloride (Normal Saline -) 1,000 mls @ 125 mls/hr IV ASDIR [facility] Last Admin: 06/16/18 04:57 Dose: 125 mls/hr Ceftriaxone Sodium 1 gm/ (Dextrose) 50 mls @ 200 mls/hr IVPB DAILY [facility] Last Admin: 06/16/18 10:30 Dose: 200 mls/hr Ketorolac Tromethamine (Toradol Injection -) 15 mg IVPUSH Q6H PRN PRN Reason: PAIN LEVEL 6-10 Stop: 06/20/18 16:16 Last Admin: 06/16/18 08:02 Dose: 15 mg Ondansetron HCl (Zofran Injection) 4 mg IVPUSH Q6H-IV ALEJANDRO Last Admin: 06/16/18 10:30 Dose: 4 mg Laboratory Results - last 24 hr 06/16/18 06/16/18 06:10 06:10 WBC 8.2 RBC 4.24 Hgb 11.8 Hct 35.5 MCV 83.7 MCH 27.8 MCHC 33.2 RDW 15.4 Plt Count 203 MPV 10.7 Absolute Neuts (auto) 4.3 Neutrophils % 52.5 Lymphocytes % 30.3 Monocytes % 11.6 H Eosinophils % 4.5 Basophils % 1.1 Nucleated RBC % 0 Sodium 143 Potassium 4.8 Chloride 110 H Carbon Dioxide 28 Anion Gap 5 L BUN 10 Creatinine 0.6 Creat Clearance w eGFR > 60 Random Glucose 92 Calcium 8.4 L Phosphorus 2.9 Magnesium 2.0 Microbiology 06/14/18 18:39 Urine - Urine Clean Catch Urine Culture - Final NO GROWTH OBTAINED ASSESSMENT AND PLAN: 43 yof with PMhx of nephrolithiasis, s/p stent placement, ?recent lithotripsy, admitted with abdominal pain/urinary symptoms. -Acute lower uncomplicated UTI with likely right sided pyelonephritis -Right hydronephrosis -Nephrolithiasis s/p stent placement, ?Recent lithotripsy -Morbid obesity Plan: Ceftriaxone day 3, urine culture neg. Discussed with Dr. Perera, ceftin and pain control, ok to d/c with outpatient follow up tomorrow for stent removal. d/c home today. Plan discussed with patient in detail, all questions answered. Patient relays understanding about antibiotics, need for follow up tomorrow and in agreement with the plan.
--- NOTE | 2018-06-16 15:55 | DS ---
Physical Exam: SUBJECTIVE: Patient seen and examined OBJECTIVE: Vital Signs Period Temp Pulse Resp BP Sys/Rubi Pulse Ox Last 24 Hr 97.8 F-98.5 F 71-92 18-20 100-129/56-78 97 PHYSICAL EXAM GENERAL: The patient is awake, alert, and fully oriented, in no acute distress. HEAD: Normal with no signs of trauma. EYES: PERRL, extraocular movements intact, sclera anicteric, conjunctiva clear. ENT: Ears normal, nares patent, oropharynx clear without exudates, moist mucous membranes. NECK: Trachea midline, full range of motion, supple. LUNGS: Breath sounds equal, clear to auscultation bilaterally, no wheezes, no crackles, no accessory muscle use. HEART: Regular rate and rhythm, S1, S2 without murmur, rub or gallop. ABDOMEN: Soft, nontender, nondistended, normoactive bowel sounds, no guarding, no rebound, no hepatosplenomegaly, no masses. EXTREMITIES: 2+ pulses, warm, well-perfused, no edema. NEUROLOGICAL: Cranial nerves II through XII grossly intact. Normal speech, gait not observed. PSYCH: Normal mood, normal affect. SKIN: Warm, dry, normal turgor, no rashes or lesions noted. LABS Laboratory Results - last 24 hr 06/16/18 06/16/18 06:10 06:10 WBC 8.2 RBC 4.24 Hgb 11.8 Hct 35.5 MCV 83.7 MCH 27.8 MCHC 33.2 RDW 15.4 Plt Count 203 MPV 10.7 Absolute Neuts (auto) 4.3 Neutrophils % 52.5 Lymphocytes % 30.3 Monocytes % 11.6 H Eosinophils % 4.5 Basophils % 1.1 Nucleated RBC % 0 Sodium 143 Potassium 4.8 Chloride 110 H Carbon Dioxide 28 Anion Gap 5 L BUN 10 Creatinine 0.6 Creat Clearance w eGFR > 60 Random Glucose 92 Calcium 8.4 L Phosphorus 2.9 Magnesium 2.0 HOSPITAL COURSE: Date of Admission:06/14/18 Date of Discharge: 06/16/18 Discharge Summary Reason For Visit: UTI Condition: Good - Instructions Diet, Activity, Other Instructions: Take antibiotic ceftin as directed till further instructed by Dr. Petersen. Start antibiti tomorrow. You are provided with 1 week supply for the antibiotic. Take ibuprofen alternating with motrin as directed. Recommend taking Over the counter prilosec 20 mg daily while on motrin. Call Dr. Petersen's office on discharge today to make an appointment for stent removal tomorrow. Call 911 or come to ED if any new fevers, chills, belly pain, urinary symptoms, nausea, vomiting, inability to eat or any new concerns. Referrals: Rich Petersen MD [Staff Physician] - 06/17/18 Chuy Estrella MD [Primary Care Provider] - 1 Week Disposition: HOME - Home Medications Comprehensive Discharge Medication List: Ambulatory Orders Acetaminophen [Tylenol .Regular Strength -] 650 mg PO Q6H PRN tablet 06/16/18 Albuterol 2.5/Ipratropium 0.5 [Duoneb -] 1 amp NEB 06/16/18 Albuterol Sulfate Inhaler - [Ventolin Hfa Inhaler -] 1 puff IH DAILY 06/16/18 Budesonide/Formeterol Fumarate [SYMBICORT 160/4.5mcg -] 1 inh PO BID 06/16/18 Cefuroxime Axetil [Cefuroxime] 500 mg PO Q12H #14 tablet 06/16/18 Ibuprofen [Motrin -] 600 mg PO TID PRN #21 tablet 06/16/18 Loratadine [Claritin] 10 mg PO DAILY 06/16/18 Nitrofurantoin Monohyd/M-Cryst [Macrobid -] 100 mg PO BID 06/16/18 Omeprazole Magnesium [Prilosec Otc] 20 mg PO DAILY #7 tablet. 06/16/18 Ondansetron [Zofran Odt -] 4 mg PO TID 06/16/18 Sulfamethoxazole/Trimethoprim [Bactrim Ds -] 1 tab PO BID 06/16/18 Tramadol HCl 50 mg PO Q6H 06/16/18 - Discharge Referral Referred to [facility] No
== END 2018-06-16 13:53 | disposition home or self-care (01) | DRG 690 ==
LOC: JER 17:27 → JERBED 22:21 → J5S 06-15 02:41
PROVIDERS: ADMIT Internal Medicine; ATTEND Hospitalist
DX: N10 Acute pyelonephritis (principal); Z68.41 Body mass index [BMI] 40.0-44.9, adult; J45.909 Unspecified asthma, uncomplicated; E66.01 Morbid (severe) obesity due to excess calories; F17.210 Nicotine dependence, cigarettes, uncomplicated; R31.9 Hematuria, unspecified; N13.30 Unspecified hydronephrosis
CPT/HCPCS: 36415; 74176; 76775-TC; 80048; 80053; 81003; 81015; 83735; 84100; 84703; 85025; 85027; 85610; 87086; 99283-25; J7030

== ENCOUNTER 2022-08-22 09:35 | Emergency (ER) | payer OTHER ==
[2022-08-22 09:43] VITALS: BP 140/66; PULSE 87; RESP 19; TEMP 97.3; BMI 42.5
[2022-08-22] MEDS ORDERED: METHOCARBAMOL 500 MG TABLET PO ONE (10:11)
[2022-08-22] MEDS ORDERED: KETOROLAC TROMETHAMINE 30 MG/1 ML VIAL IM ONE (10:12)
[2022-08-22] MEDS ORDERED: METHOCARBAMOL 500 MG TABLET ONE (10:13)
[2022-08-22] MEDS ORDERED: KETOROLAC TROMETHAMINE 30 MG/1 ML VIAL ONE (10:13)
== END 2022-08-22 10:48 | disposition home or self-care (01) ==
LOC: JERFT 09:35
PROC: 3E0233Z Introduction of Anti-inflammatory into Muscle, Percutaneous Approach (ICD-10-PCS; principal; 2022-08-22)
DX: S16.1XXA Strain of muscle, fascia and tendon at neck level, initial encounter (principal); M62.838 Other muscle spasm; Y99.9 Unspecified external cause status
CPT/HCPCS: 99284-25